=== PATIENT | male | born 1940 | race Caucasian/White ===

== ENCOUNTER → 2018-03-02 14:36 | Outpatient (CLI) | payer MEDICARE, SELFPAY ==
--- NOTE | 2018-03-02 14:38 | DI.MRI.S_ITS ---
PROCEDURE: MR ABDOMEN WO CON INDICATIONS: ELEVATED ALKALINE PHOSPHATASE TECHNIQUE: Coronal HASTE through the abdomen, axial 2-D FLASH in- and [id number], and breath-hold T2 FSE with fat saturation through the biliary system and pancreas. Oblique coronal and axial thin-slice HASTE, radial thick-slab HASTE centered on the extrahepatic bile ducts. Intravenous secretin: Not requested. COMPARISON: None. FINDINGS: Image quality: Excellent. Pancreas and biliary system: Intra- and extra-hepatic biliary ducts are non dilated. Pancreas is normal in morphology, without adjacent soft tissue edema. Pancreatic duct is normal in caliber, without developmental anomalies. Gallbladder appears normal. Other solid organs: Liver is normal in size. Spleen is normal in size. No adrenal nodules. Both kidneys are normal in size, without hydronephrosis. Nodes and vessels: No retroperitoneal or mesenteric adenopathy by size criteria. Aorta and inferior vena cava are normal in size. Bowel and peritoneum: Unenhanced bowel loops are normal in caliber. No free fluid. Lung bases: No basal pleural effusions. Heart size is normal. Bones and soft tissues: No ventral hernias. Bone marrow is of normal overall signal. IMPRESSION: Source of elevated liver function tests is not found. No underlying biliary distention or gallbladder calculus is found. Liver parenchyma appears normal for age. Dictated by: Cholo Pablo M.D. on 03/04/2018 at 10:04 Approved by: Cholo Pablo M.D. on 03/04/2018 at 10:05
== END ==
PROVIDERS: Family Provider Family Medicine; PCP Family Medicine; Visit Provider Family Medicine
DX: R74.8 Abnormal levels of other serum enzymes (principal)
CPT/HCPCS: 74181

== ENCOUNTER → 2018-09-04 09:18 | Outpatient (CLI) | payer MEDICARE, SELFPAY ==
--- NOTE | 2018-09-04 | DI.ECHO.S_ITS ---
[place] [facility]---------+ [facility] +---------+ : : [address] : : : : [id number] : : : : Phone: [phone] Echocardiogram Report + + :Name: MARION LLANOS Study Date: 09/04/2018 Height: 70 in : :[facility] Exam Location: IS Weight: 193 lb : : Gender: Male BSA: 2.1 m2 : :: 1940 Age: 77 yrs BP: 125/60 mmHg: :Reason For Study: Atrial fibrillation : :Ordering Physician: Florencio : :Erwin Garrido Performed By: Palma Page : :Referring: SHIRA DASH : + + Interpretation Summary The patient was in atrial fibrillation with heart rates between 90-111 bpm during the exam. The left ventricle is normal in size. Left ventricular systolic function is low normal. The ejection fraction is estimated to be 50-55%. There has been no significant change since the previous study. There are no focal wall motion abnormalities. The right ventricle is normal in size and function. The right ventricular systolic pressure is estimated to be at least 27 mmHg based on an estimated right atrial pressure of 8 mm Hg. Both atria are severely dilated. The aortic valve is mildly calcified. There is no hemodynamically significant valvular aortic stenosis. The peak aortic velocity is 2.1 m/sec. The peak aortic velocity on the previous exam was 2.3 m/sec. There is mild aortic regurgitation. Compared to the prior echo study, there has been a decrease in the severity of aortic regurgitation. There is no other significant valvular heart disease. The aortic root is mildly dilated. The ascending aorta is mildly enlarged. Procedure: A two-dimensional transthoracic echocardiogram with color flow and Doppler was performed. The study quality was technically adequate. Comparison is made with the echocardiogram of 08/23/2016. The patient was in atrial fibrillation with heart rates between 90-111 bpm during the exam. Left Ventricle: The left ventricle is normal in size. Left ventricular wall thickness is mildly increased. Left ventricular systolic function is low normal. The ejection fraction is estimated to be 50-55%. There has been no significant change since the previous study. There are no focal wall motion abnormalities. Diastolic function could not be accurately assessed due to atrial fibrillation. Right Ventricle: The right ventricle is normal in size and function. Atria: Both atria are severely dilated. There is no Doppler evidence for an interatrial shunt. Mitral Valve: The mitral valve leaflets appear mildly thickened, but open well. There is mild mitral annular calcification. There is trace mitral regurgitation. Aortic Valve: The aortic valve is mildly calcified. There is no hemodynamically significant valvular aortic stenosis. The peak aortic velocity is 2.1 m/sec. The peak aortic velocity on the previous exam was 2.3 m/sec. The calculated aortic valve area is 2.0 cm2. The aortic valve mean gradient is 10.1 mmHg. There is mild aortic regurgitation. Compared to the prior echo study, there has been a decrease in the severity of aortic regurgitation. Tricuspid Valve: The tricuspid valve is normal in structure and function. There is trace tricuspid regurgitation. The right ventricular systolic pressure is estimated to be at least 27 mmHg based on an estimated right atrial pressure of 8 mm Hg. Pulmonic Valve: The pulmonic valve is not well visualized. There is no pulmonic valvular regurgitation. There is no other significant valvular heart disease. Great Vessels: The aortic root is mildly dilated. The ascending aorta is mildly enlarged. The pulmonary artery is not well visualized, but is probably normal size. The IVC is dilated (diameter is greater than 2.1 cm) yet it collapses greater than 50% with a sniff. This suggests a right atrial pressure of 8 mm Hg. Pericardium/ Pleura There is no pericardial effusion. There is no pleural effusion. MMode/2D Measurements & Calculations LVIDd: 5.1 cm LVOT diam: 2.3 cm LVIDs: 4.1 cm Ao root diam: 4.1 cm FS: 19.8 % asc Aorta Diam: 3.9 cm EPSS: 0.48 cm IVSd: 1.2 cm LVPWd: 1.2 cm LV le. diameter/BSA (cm/m^2): 2.5 LV sys. diameter/BSA (cm/m^2): 2.0 LA A2 area: 32.2 cm2 RA long axis: 7.5 cm LA A4 area: 28.3 cm2 RA area: 31.9 cm2 LA length (vol): 7.6 cm RA vol: 115.4 ml LA vol: 101.8 ml RA : 56.1 ml/m2 LA vol index: 49.5 ml/m2 IVC diam: 2.7 cm RVD1 (basal): 3.4 cm RVD2 (mid): 2.4 cm Doppler Measurements & Calculations Ao V2 max: 214.3 cm/sec LVOT Max Brent: 103.1 cm/sec Ao V2 mean: 150.1 cm/sec LV V1 max P.3 mmHg Ao max P.4 mmHg LV V1 VTI: 21.1 cm Ao mean P.1 mmHg FRANK(I,D): 2.2 cm2 Ao V2 VTI: 39.7 cm FRANK(V,D): 2.0 cm2 sev ratio: 0.53 FRANK indexed to BSA (cm^2/m^2): 1.1 MV E max brent: 119.0 cm/sec TR max brent: 217.0 cm/sec Med Peak E' Brent: 8.4 cm/sec TR max P.9 mmHg E/E' med: 14.2 PA V2 max: 80.2 cm/sec Lat Peak E' Brent: 5.9 cm/sec PA V2 mean: 57.0 cm/sec E/E' lat: 20.2 PA mean P.4 mmHg E/e' average: 17.2 PA Accel Time: 0.07 sec MV P1/2t: 57.1 msec MVA(VTI): 3.0 cm2 MV V2 mean: 68.7 cm/sec MV P1/2t max brent: 117.5 cm/sec MV mean P.4 mmHg MVA(P1/2t): 3.8 cm2 MV V2 VTI: 29.8 cm SV(LVOT): 89.1 ml Reading Physician:12:31 PM
== END ==
PROVIDERS: PCP Family Medicine; Visit Provider Internal Medicine Cardiovascular Disease
DX: I48.2 Chronic atrial fibrillation (principal); I35.1 Nonrheumatic aortic (valve) insufficiency; I77.89 Other specified disorders of arteries and arterioles
CPT/HCPCS: 93306

== ENCOUNTER → 2018-10-31 11:35 | Outpatient (CLI) | payer MEDICARE, SELFPAY ==
--- NOTE | 2018-10-31 | DI.RAD.S_ITS ---
PROCEDURE: XR HIP W PEL IF DONE LT 2V INDICATIONS: left hip pain TECHNIQUE: AP pelvis with lateral view(s) of the left hip(s). COMPARISON: None. FINDINGS: Bones: No fractures or dislocations. Pelvic ring appears intact. No suspicious bony lesions. There are severe osteoarthritic changes in hips bilaterally with joint space narrowing subchondral sclerosis and periarticular osteophytes, left greater than right. Soft tissues: The visualized bowel gas pattern is normal. No suspicious soft tissue calcifications. 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 Dictated by: Dhruv Mayer M.D. on 10/31/2018 at 17:36 Approved by: Dhruv Mayer M.D. on 10/31/2018 at 17:38
== END ==
PROVIDERS: PCP Family Medicine; Visit Provider Family Medicine
DX: M25.552 Pain in left hip (principal); M16.0 Bilateral primary osteoarthritis of hip
CPT/HCPCS: 73502

== ENCOUNTER → 2018-12-05 09:33 | Outpatient (CLI) | payer MEDICARE, SELFPAY | PROVIDERS: PCP Family Medicine; Visit Provider Family Medicine | DX: R20.0 Anesthesia of skin (principal) | CPT/HCPCS: 95885; 95886; 95911 ==

== ENCOUNTER → 2019-01-09 14:42 | Outpatient (CLI) | payer MEDICARE, SELFPAY ==
[2019-01-09 15:15] LABS: Add Manual Diff / Slide Review NO; Basophils Absolute Auto 100 /uL (0-100); Basophils Percent Auto 0.8 % (0-2); Eosinophils Absolute Auto 200 /uL (0-450); Eosinophils Percent Auto 1.9 % (2-4); Hematocrit 39.4 % (41-53); Hemoglobin 13.3 g/dL (13.5-17.5); Lymphocytes Absolute Auto 1300 /uL (1100-4500); Lymphocytes Percent Auto 16.3 % (25-40); Mean Corpuscular HGB Conc 33.6 % (30-36); Mean Corpuscular Hemoglobin 31.8 PG (26-34); Mean Corpuscular Volume 94.5 fL (80-100); Monocytes Absolute Auto 600 /uL (0-900); Monocytes Percent Auto 7.4 % (3-14); Neutrophils Absolute Auto 5900 /uL (1500-7000); Neutrophils Percent Auto 73.6 % (50-75); Platelet Count 251 X10^3/uL (150-400); Red Blood Cell Count 4.17 X10^6/uL (4.5-5.9); Red Cell Distribution Width 14.9 % (11.6-14.8)
[2019-01-09 16:00] LABS: Carbon Dioxide 28 mmol/L (22-32); Chloride 99 mmol/L (98-107); HEMOLYSIS < 15 (0-50); Potassium 4.2 mmol/L (3.4-5.1); Sodium 138 mmol/L (137-145)
== END ==
PROVIDERS: PCP Family Medicine; Visit Provider Orthopaedic Surgery
DX: M16.10 Unilateral primary osteoarthritis, unspecified hip (principal); Z01.818 Encounter for other preprocedural examination; Z01.812 Encounter for preprocedural laboratory examination
CPT/HCPCS: 36415; 80051; 85025; 93005

== ENCOUNTER 2019-02-10 06:09 | Inpatient (IN) | payer MEDICARE, SELFPAY ==
[2019-01-27 08:53] VITALS: BMI 28.3
[2019-02-10] VITALS (18 sets, daily range): BP systolic 85–179; BP diastolic 39–91; PULSE 68–98; RESP 10–20; TEMP 36.2–37.2; O2SAT 93–97; BMI 29.0
--- NOTE | 2019-02-10 06:00 | DI.RAD.S_ITS ---
PROCEDURE: XR PELVIS 1-2V INDICATIONS: ADAM TECHNIQUE: 1 view of the lower pelvis acquired. COMPARISON: None. FINDINGS: Bones: Patient is status post left total hip arthroplasty, with hardware components in expected positions. The hip joint appears congruent. The visualized bony structures appear intact. Degenerative changes of the right hip are present. Soft tissues: Overlying postoperative changes are noted. No suspicious soft tissue densities. IMPRESSION: Expected postoperative changes of left total hip arthroplasty. No acute hardware complication. Dictated by: Rush Ford M.D. on 02/10/2019 at 10:11 Approved by: Rush Ford M.D. on 02/10/2019 at 10:12
[2019-02-10] MEDS: LACTATED RINGERS 1,000 ML 42 ML IV ×2 (07:05→08:47)
[2019-02-10] MEDS: PREGABALIN 75 MG CAPSULE PO (07:08)
[2019-02-10] MEDS: ACETAMINOPHEN 325 MG TABLET 975 MG PO ×3 (07:09→21:01)
--- NOTE | 2019-02-10 07:15 | SUR.PREOP ---
Pt refused celebrex due to hx of taking eliquis.
--- NOTE | 2019-02-10 07:49 | PM.PREOP ---
Pre-operative Note Interval Note History & Physical reviewed/Exam performed by Physician: Yes Changes to H&P: No
[2019-02-10] MEDS: CEFAZOLIN 2 GM/100 ML FROZ.PIGGY IV ×3 (07:50→23:57)
[2019-02-10] MEDS: TRANEXAMIC ACID 1,000 MG VIAL 2000 MG INJ ×2 (08:10→09:09)
--- NOTE | 2019-02-10 08:24 | SUR.OPER ---
Lateral on padded OR bed. Gel axillary roll. Arms secured on padded armboard with pillow supporting top arm. Padded hip positioner braces x4 - anterior and posterior chest and pelvis. Additional gel pad used anterior pelvis. Gel pad under bottom leg from knee to foot and secured with tape over sheet.
[2019-02-10] MEDS: ROPIVACAINE 0.5% PF 5 MG/ML 20ML VIAL 60 ML INJ (08:31)
[2019-02-10] MEDS: KETOROLAC 30 MG/ML VIAL IV (08:31)
[2019-02-10] MEDS: MORPHINE 4 MG/ML INJ INJ (08:31)
--- NOTE | 2019-02-10 09:46 | PM.OP.1 ---
Operative Date/Time/Diagnoses Date of procedure: 02/10/19 Time of procedure: 09:46 Pre-op diagnosis: Left hip degenerative joint disease Post-op diagnosis: same Procedure & Clinicians Procedure: Left total hip arthroplasty (CPT code 55236 with payroll and benefits assistant) Same procedure as scheduled: Yes Indications: Patient is an 78-year-old male with severe left hip DJD. The patient has pain with activities and at rest, limited ambulation and activity tolerance, difficulties with ADLs, and failure of conservative treatment. We have discussed the nature of condition, treatment options, risks and benefits, and patient elects to proceed with total hip arthroplasty and gives informed consent. Surgeon: Jaxon Johnson Breading Machine Tender: Fox Chowdary Anesthesia Type: General and Spinal Operative Notes Closure Type: primary Specimen(s): none sent Prosthetic devices, grafts, tissues, transplants, or devices: Acetabulum: Mott [employer] Nephew R3 acetabular component size 56 mm Femoral component: Mott [employer] Nephew Anthology stem size 7 with standard offset Femoral head: 36 mm + 8 cobalt chrome Estimated Blood Loss (mL): 100 Blood products transfused: none Procedure in detail: After satisfaction induction of anesthetic, and administration of IV antibiotics, the patient was positioned in the lateral decubitus position with all bony prominences well padded and pelvic position secured using a hip ranch helper positioning device. Left hip and lower extremity prepped and draped in the usual sterile fashion, 1st dose of intravenous tranexamic acid was administered, then a longitudinal incision was created centered over the greater trochanter and carried sharply through the skin and subcutaneous tissues down to the fascia jaycob which was divided longitudinally and retracted with a Charnley retractor. External rotators visualize, cut, tagged, and retracted posteriorly, then the capsule was cut in a T-type fashion with the corners tagged and retracted. Hip was dislocated and femoral neck cut made according to preoperative templating. Acetabular retractors then placed, and the acetabular labrum and osteophytes were excised. The acetabulum was then sequentially reamed to 55 mm with an excellent circumferential ream and fit with the trial. The trial component was removed and a permanent size 56 mm Mott and Nephew R3 acetabular component was selected, positioned, and impacted with satisfactory position and fixation achieved. Permanent liner was then inserted with the elevated lip directed posteriorly. Soft tissue then removed off the lateral femoral neck in the lateral neck was entered using a box osteotome. T-handled reamers placed down the canal followed by sequential broaching to 7 with the final broach left in place for trial reduction which demonstrated excellent leg length, range of motion, and stability characteristics with a 36 mm +8 trial ball. The trial and broach were removed, and a permanent size 7 Mott and Nephew Anthology stem was selected and inserted with excellent position and fixation achieved. Another trial reduction yielded the above characteristics so the trial ball was exchanged for a permanent 36 mm +8 cobalt chrome ball. The hip was irrigated and reduced and excellent leg length range of motion and stability characteristics were achieved and maintained. Periarticular tissues were infiltrated with ropivacaine, morphine, and Toradol. The hip was copiously irrigated, and the capsule repaired with #2 Ethibond, and the piriformis was repaired back to the greater trochanter with the same. Fascia jaycob closed with interrupted #1 Ethibond sutures, and the subcutaneous tissues were closed in 2 layers of 0 Vicryl and 2 0 Vicryl. Skin was closed with erika and sterile dressings applied. Second dose of tranexamic acid was administered intravenously, and the anesthetic was terminated. Complications: none Post-operative Condition: stable Disposition: PACU Plan for aftercare: Patient will be admitted to the acute care [facility], and anticipate discharge on postop day 1 with follow-up in office in 10-14 days. Outpatient physical therapy will be arranged and patient will continue to observe posterior hip precautions. Patient will continue use of Eliquis postoperatively.
--- NOTE | 2019-02-10 09:46 | SUR.PREOP ---
Late enrty: INR discussed with Dr. Johnson, instructed that it is not needed.
[2019-02-10] MEDS: LACTATED RINGERS 1,000 ML 125 ML IV (15:59)
--- NOTE | 2019-02-10 17:39 | PC.NURSE ---
Addendum entered by Rosalva Green R.N. 02/10/19 22:38: Patient denies any more emesis or nausea tonight. 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 Wearing bilateral SCD's. Voided 4 ml, post-void bladder scan = 398 ml. He asked to have more time in order to void, will reassess. Drinking lots of H2o, diet advanced to regular. Original Note: Evening notee: Kaden resting in bed. PT in to work with him but said he was not safe to ambulate & lacking motor control of leg. PT told me it would be good to get patient up to side of bed later tonight and have him attempt marching in place, but not to try to ambulate patient tonight. PT said they would be back in AM to reassess. Patient denied nausea but had bout of sudden emesis. After he threw up told me he was not nauseated and did not want anti-emetic at this time. After 1 hour of rest patient given clear liquids and told to go slow on PO intake. Has not voided since admitted, told me he said he thought he felt urge but it went away. Bladder scan = 255 ml. Instructed him to drink water as tolerated. Denies pain to left leg, CMS intact, moving feet actively. SCD's on bilaterally. VS are stable. RA oxygen 96-100% with continuous pulse ox monitoring in place. Fall precautions in place, alarm active for safety. Dr Johnson in to see patient. Family & friends in room to visit.
[2019-02-10] MEDS: LOSARTAN 50 MG TABLET 100 MG PO (19:01)
[2019-02-10] MEDS: APIXABAN 5 MG TABLET PO (21:01)
[2019-02-10] MEDS: METOPROLOL ER 50 MG TABLET 75 MG PO (21:01)
[2019-02-10] MEDS: ASPIRIN EC 81 MG TABLET PO (21:01)
[2019-02-10] MEDS: ATORVASTATIN 20 MG TABLET 40 MG PO (21:01)
--- NOTE | 2019-02-10 22:45 | PC.NURSE ---
1725 - RN requested bladder scan. Pt had 255ml. 2100- Second bladder scan performed at RN request and pt had 398cc. However, just prior to this scan the pt tried for almost 20 mins to urinate with only minimal success of 4cc out.
--- NOTE | 2019-02-10 23:43 | PC.NURSE ---
Addendum entered by Blake Myers CNA 02/10/19 23:44: Notified float FLORES Dacosta after scan complete. Original Note: 2300- Bladder scan at RN request. Scanned 395ml.
[2019-02-11] MEDS: LACTATED RINGERS 1,000 ML 125 ML IV (01:29)
[2019-02-11 04:00] VITALS: BP 129/64; PULSE 96; RESP 18; TEMP 36.4; O2SAT 93
[2019-02-11 06:25] LABS: Hematocrit 34.7 % (41-53); Hemoglobin 11.3 g/dL (13.5-17.5)
--- NOTE | 2019-02-11 07:43 | PM.PNPO.1 ---
Subjective Subjective Date Patient Seen: 02/11/19 Time Patient Seen: 07:30 Interval history: Post op day 1 s/p posterior approach left total hip arthroplasty with Dr. Johnson. Overnight patient had a bladder scan of 395ml and was straight cathed for 300 ml. This AM patient voided 100 ml unassisted. Denies history of BPH. Patient is doing minimal ambulation and hasn't seen PT. He denies pain and feels stable when standing up. PT advised to begin ambulating more, will see PT today. Patient states he has no pain and only taking tylenol. Patient advised that pain will return and to take oxycodin, dilaudid as needed. Patient denies fever, chills, chest pain, shortness of breath, calf pain. Exam Vital Signs (past 8 hours): - 02/10/19 23:55 02/11/19 04:00 Temperature 97.6 F 97.6 F Pulse Rate 84 96 H Respiratory Rate 18 18 Blood Pressure 140/65 129/64 Pulse Oximetry 94 93 Oxygen Delivery Method Room Air Oxygen Flow Rate 0 Narrative Exam Narrative: 78 year old man laying comfortably in bed, in no apparent distress. A&Ox3. Dressing is CDI on left hip. Patient able to actively dorsiflex/plantar flex. Sensory function grossly intact to light touch in LE b/l. Dorsalis pedis 2+ b/l. Capillary refill <2 seconds in LE b/l. Calves warm, soft, compressible and nttp. Objective Labs Result Diagrams: 02/11/19 05:49 Labs: Laboratory Results - last 24 hr 02/11/19 05:49 Hgb 11.3 L Hct 34.7 L Assessment & Plan Post-op Postoperative Procedures: Procedures Operation Date: 02/10/19 07:45 Actual Procedures Side Surgeon p Total Hip Arthroplasty Left Jaxon Johnson MD Postoperative status: urinary retention Postoperative plan narrative: Urinary retention - flomax, continue to monitor, if bladder scan >400 ml then straight cath Ambulation - begin physical therapy today Pain - continue current pain management, anticipate use of oxycodone and dilaudid today Discharge likely tomorrow pending urinary retention and ambulation with physical therapy Time Spent With Patient Time with patient: less than 15 minutes
[2019-02-11 08:00] VITALS: BP 116/76; PULSE 74; RESP 16; TEMP 36.8; O2SAT 96
[2019-02-11 08:30] VITALS: O2SAT 94
--- NOTE | 2019-02-11 09:27 | PT.IPTN ---
Current Diagnoses Unilateral primary osteoarthritis, left hip (02/10/19) Surgery Performed Operation Date: 02/10/19 07:45 Actual Procedures p Total Hip Arthroplasty(Left) - Jaxon Johnson MD Physical Therapy Treatment Note M2 PT-IP Current Condition Start: 02/10/19 11:44 Freq: NEEDED Status: Active Protocol: Document 02/10/19 15:08 RS (Rec: 02/10/19 15:45 RS [id number]) Physical Therapy Current Condition Current Condition Evaluation Date 02/10/19 Treatment Diagnosis L posterior hip replacement, impaired mobility Onset Date 02/10/19 Precautions Posterior Hip Precautions No Hip Flexion > 90 degrees,No Hip Internal Rotation,No Hip Adduction Weight Bearing Status Weight Bearing Status Weight Bear as Tolerated M3 PT-IP Subjective Start: 02/10/19 11:44 Freq: NEEDED Status: Active Protocol: Document 02/11/19 08:36 CLB (Rec: 02/11/19 10:05 CLB [email or web address]) Subjective Physical Therapy Visit Type Type Treatment Note Visit Start Time 08:36 Visit Stop Time 09:27 Total Visit Minutes 51 Number of CATTLE EXAMINER Visits 1 Physical Therapy Visit Comments Patient Comments Pt eager to work with therapy. Therapy Pain Assessment Pain When Pain Assessed During Mobility Pain Present Pain Present Pain Reported Location Left Hip Intensity 1 Scale Used Numeric (1 - 10) Pain Management Techniques Modification of Treatment, Timing of Activity with Medications M4 PT-IP Mobility and Gait Start: 02/10/19 11:44 Freq: NEEDED Status: Active Protocol: Document 02/11/19 08:36 CLB (Rec: 02/11/19 10:05 CLB [email or web address]) PT-Bed Mobility Assessment Supine to Sit Supine to Sit Standby Assistance,Head of Bed Elevated,Bedrails Sit to Supine Sit to Supine Standby Assistance Scooting Scooting to Edge of Bed Standby Assistance PT-Transfer Assessment Sit to and From Stand Sit to and from Stand Contact Guard Assistance,1 Person Assistance,Use of Upper Extremities Equipment Transfer Assistive Device Gait Belt,Front Wheeled Walker Transfers Transfer Destination Bed,Chair,Toilet Comments Mobility Comments Pt doing well with bed mobility requiring SBA. Pt was able to get LLE off bed w/o assist. Pt able to go from sit -stand with cues to put LLE out in front before standing and cues for hand position. Pt required CGA to sit onto toilet and use of wall rail. Gait Assessment Gait Gait Assistance Required: Standby Assistance,Contact Guard Assist Distance (Feet) 200 Able to Maintain Weight Bearing Status Yes During Gait Assistive Devices Assistive Device Gait Belt,Front Wheeled Walker Gait Deviations General Gait Pattern Antalgic,Decreased Stride Length,Decreased Feet Clearance,Flexed Trunk,Step-to Gait Factors Limiting Gait Function Factors Limiting Gait Function Decreased Activity Tolerance, Decreased Strength,Limited Range of Motion,Pain Comments Gait Comments Pt required cues for posture and proper sequencing with walker. Pt able to then use proper step walker sequencing with continued cues for posture and forward gaze as pt tends to watch his feet while walking. Stair Climbing Assessment Evaluation Level of Assist On Stairs Contact Guard Assistance,1 Person Assistance Devices Stair Climbing Assistive Devices Right Railing Technique/Endurance Stair Climbing Direction Ascend and Descend Stair Climbing Technique Step to Step Number of Steps Climbed 3 Stair Climbing Set # Repetitions (reps) 3 Comments Stair Climbing Comments Pt able to climb stairs with right rail and MATH PROFESSOR on left side, pt/CATTLE EXAMINER demonstrated on first set then was able to assist pt with two sets. Pt climbed stairs with minor increase in pain. M5 PT-IP Objective Assessments Start: 02/10/19 11:44 Freq: NEEDED Status: Active Protocol: Document 02/10/19 15:08 RS (Rec: 02/10/19 15:45 RS [id number]) Orientation Orientation/Cognition Level of Alertness Alert Orientation Name,Age,Birthday,Month,Date, Year,Day of Week,Place, Situation Language Function Ability No Deficits Noted Safety Awareness Understands Safety Issues Memory Description No Deficits Noted Gross Range of Motion Upper Extremity ROM Assessment Within Functional Limits Lower Extremity ROM Assessment Within Functional Limits Impairments with LLE posterior hip precautions Strength Upper Extremity Strength Assessment Within Functional Limits Lower Extremity Strength Assessment Left Impaired Comments Strength Comments not formally assessed. pt able to perform all ADAM exercises without assist except for quad set, having trouble isolating activation of quads and was trying to substitute with hamstrings. L quads currently 2-/5 at best Sensation Assessment Comments Sensation Comments initial LT testing was symmetrical and intact per pt from foot up to thigh, but at end of session pt reports that his LLE does feel more numb than the RLE M6 PT-IP Treatment Start: 02/10/19 11:44 Freq: NEEDED Status: Active Protocol: Document 02/11/19 08:36 CLB (Rec: 02/11/19 10:05 CLB [email or web address]) Physical Therapy Treatment Exercises Exercises Ankle Pumps,Gluteal Sets,Quad Sets,Heel Slides,Supine Hip Abduction Education Education Provided Precautions,Weight Bearing Status,Post-Op Packet,Safety M7 PT-IP Assessment and Plan Start: 02/10/19 11:44 Freq: NEEDED Status: Active Protocol: Document 02/11/19 08:36 CLB (Rec: 02/11/19 10:05 CLB [email or web address]) PT Summary Assessment and Plan Potential Rehabilitation Potential Good Status of Condition at Evaluation Evolving Summary Impairments Strength,Balance,Sensation, Transfers,Gait Assessment Summary Pt improved with all bed mobility, transfers and gait. Pt able to climb stairs with wifes assist. Pt with good activation of L quad today and is able to stand, walk and perform quad sets. Pt seems safe to d/c home with 's assistance when medically stable. Goals Bed Mobility Goal Independent Transfer Goal Contact Guard Assistance Gait Goal Contact Guard Assistance Gait Distance 50 Other Goals up/down 2 steps with CGA Days to Meet Goals 3 Frequency of Treatment Frequency Of Treatment Twice a Day Treatment Plan Physical Therapy Treatment Plan Bed Mobility Training,Transfer Training,Gait Training, Therapeutic Exercise,Balance Retraining,Post Op Education, Discharge Planning,Hot or Cold Pack,Neuromuscular Re-ed, Coordination Retraining,Manual Therapy Recommendations To Nursing Amount of Assist Needed 1 Person Assist Discharge Recommendations PT Discharge Recommendations Home with 13/11 Assist, Outpatient PT
[2019-02-11] MEDS: FUROSEMIDE 40 MG TABLET PO (09:44)
[2019-02-11] MEDS: ACETAMINOPHEN 325 MG TABLET 975 MG PO (09:44)
[2019-02-11] MEDS: ASPIRIN EC 81 MG TABLET PO (09:44)
[2019-02-11] MEDS: APIXABAN 5 MG TABLET PO (09:44)
[2019-02-11] MEDS: LEVOTHYROXINE 100 MCG TABLET 200 MCG PO (09:45)
[2019-02-11] MEDS: METOPROLOL ER 50 MG TABLET 75 MG PO (09:45)
[2019-02-11] MEDS: TAMSULOSIN 0.4 MG CAPSULE PO (09:45)
[2019-02-11] MEDS: POTASSIUM CHLORIDE 20 MEQ TAB PO (09:45)
--- NOTE | 2019-02-11 10:58 | CM.DANOTE ---
DCP/Assessment: Reviewed chart. Patient is a 78yr old male admitted to [facility] for left ADAM performed on 02-10-19. PCP is Dr. Chung. Primary payor is 1)Medicare 2)[employer]. Met with patient explained CM team role. Patient's spouse/Kylie at bedside. Patient reports that he hopes to d/c home today. Patient has all needed DME and outpatient therapy is scheduled in [place]. Per patient, he has been seen by therapy and cleared to d/c home. Spoke with RN/ whom reports that she has call out to Ortho team for potential d/c order for today. P: Home when stable. NASEEM Watts Discharge Planning/Care Management CM Discharge Assessment Start: 02/11/19 10:56 Freq: Status: Active Protocol: Document 02/11/19 10:57 KJS (Rec: 02/11/19 10:58 KJS [id number]) Discharge Planning Assessment Assigned Orthopedic Shoe Maker NASEEM Watts Advance Directives? Yes Advance Directives on File No History Provided By Patient,Medical Record Prior Living Arrangements House Household Members spouse Type of transporation used prior to Drives own vehicle admit Independent with ADL's Yes Is patient alert and oriented? Yes Caregiver for Another No DME Already Rented / Owned FWW / Walker Patient/Family Preference OP PT Therapy Barriers to Discharge No Discharge Plan Home Transportation Arrangement Spouse to provide transport. Whiteboard Updated in Patient Room with Yes name and ext. # of Orthopedic Shoe Maker Review Status In Process Next Review Type Continued Stay Review Pre-Anesthesia Assessment Start: 01/27/19 08:53 Freq: Status: Complete Protocol: Document 01/27/19 08:53 CAB (Rec: 01/27/19 09:57 CAB [id number]) Pre-Anesthesia Assessment Patient Also Known As (MATT) Denton Patient Information Reviewed Via Phone Assessment Assessment Completed With Patient H&P Completed Within 30 Days Yes Diagnostic Results BMP/CMP,CBC,EKG Comment Labs/EKG at 01/09/19 Primary Care Provider Kaden Chung Seen Specialist in Last 12 Months Yes Specialist Seen Grocery Specialist,Oral surgeon, Orthopedist Primary Language Armenian Devops Engineer Required No Height 176.53 cm Weight 88.451 kg Body Mass Index (BMI) 28.3 Hearing Ability Normal Visual Assist Magnifying Glass Dentition Type Teeth, Natural Present,Dental Implants Barriers to Learning None Other Aids No Hx Anesthesia Reactions No Hx Family Anesthesia Reaction No Hx Malignant Hyperthermia No Hx Blood Transfusions No Anesthesia Review Requested No alcohol intake current alcohol intake frequency 0-2 drinks per day Smoking Status Former smoker Tobacco type cigarettes how long ago did patient quit smoking Quit 1980 Substance Use Type does not use Pain Present Pain Reported Musculoskeletal Symptoms Abnormal Gait,Back Pain, Difficulty Walking,Joint Pain, Joint Swelling,Neck Pain History of Falling (Recent or History of Yes ) Patient is completely paralyzed or No completely immobile Prosthesis or Orthotic Device Cane,Front Wheel Walker Mental Status Oriented to own ability Is patient on oxygen? No Does patient have CAMILO/SOB No Hx Sleep Apnea No Currently Taking a Beta [place] Yes: Metoprolol Can You Climb a Flight of Stairs Without Yes SOB Hx Chest Pain No Hx SOB No Hx Syncope or Dizziness No Anti-Coagulant Therapy Yes: Lorrie-Advised per Cardiology to hold 3 days prior Has a Grocery Specialist Yes: Dr. Hood-last visit 09/25/18 Cardiac Testing Yes: Echo @ 09/04/18 EF 50- 55% both atria severly dilated Hx Pacemaker/ICD No Pacemaker Rep Required? No Cardiac Clearance Received Yes Comment Cardiac records scanned to record Diet Type At Home Regular dysphagia No Bladder Pattern Nocturia Urinary Catheter Present No Hx Urinary Self Catheterization No Diabetes No Hx Drug Resistant Organism No Presence of External or Internal Medical Yes: Bilateral eye lens Devices Have you traveled outside the [facility] [place] in the last 30 days? Marital Status Lives With spouse Prior Living Arrangements House Number of Floors (Floors) One Floor Support System Spouse Patient Discharge Plan Description Return Home Comment Pt advised 1-3 day length of stay per surgeon Feels Safe in Current Environment Yes Been Physically Hurt or Threatened By a No Person in Current Environment Do you have thoughts of harming yourself None or others? Are you currently considering suicide? No Do you have a plan to hurt yourself or No Plan others? Do You Have Any Spiritual Beliefs That No May Affect Your HC Choices? Do You Have Any Cultural Practices That No May Affect Your HC Choices? Spiritual Referral None Who Can We Speak to About Patient's Care Family, friends Identifying Code for Release of Patient Declines to issue Information Health Care Proxy/Next of Kin Kylie () Health Care Proxy Emergency Contact Name Kylie () Emergency Contact Advance Directives? Yes Advance Directives on File No Requested Patient Bring Advanced Yes Directives DOS Power of Cell Inspector Yes Power of Cell Inspector Name Kylie () Power of Cell Inspector PAC Instructions Durable medical equipment, Medications to take/avoid, Nasal antibiotic,No ETOH/ petroleum product on skin DOS, NPO,Post-op transportation,Pre -surgical wash,Sturdy shoes/ comfortable clothes,Do not bring valuables and remove jewelry
--- NOTE | 2019-02-11 11:14 | PM.DS.1 ---
History of Present Illness History of Present Illness Date Patient Seen: 02/11/19 Time Patient Seen: 11:14 Chief complaint: [id number] Narrative: Patient's pain is 1 to 2/10. Denies fever chills. No nausea vomiting. Patient able to urinate well on his own. Patient's is home to assist him. He did have physical therapy this morning. 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 The patient has pain with activities and at rest, limited ambulation and activity tolerance, difficulties with ADLs, and failure of conservative treatment. We have discussed the nature of condition, treatment options, risks and benefits, and patient elects to proceed with total hip arthroplasty and gives informed consent. Surgeon: Jaxon Johnson Auto Travel Counselor: Fox Chowdary Anesthesia Type: General and Spinal Operative Notes Closure Type: primary Specimen(s): none sent Prosthetic devices, grafts, tissues, transplants, or devices: Acetabulum: Mott and Nephew R3 acetabular component size 56 mm Femoral component: Mott and Nephew Anthology stem size 7 with standard offset Femoral head: 36 mm + 8 cobalt chrome Estimated Blood Loss (mL): 100 Blood products transfused: none Patient admitted to the hospital for left hip arthroplasty. Patient consented to the same. Patient taken to the OR yesterday underwent left total hip arthroplasty. Patient back in his room recovering well as in stable condition. Patient had some difficulty urinating on his own this morning. He has been able to urinate on his own since. He has his home to assist him. He did well with physical therapy. Exam Vital Signs (past 8 hours): - 02/11/19 04:00 02/11/19 08:00 02/11/19 08:30 Temperature 97.6 F 98.2 F Pulse Rate 96 H 74 Respiratory Rate 18 16 Blood Pressure 129/64 116/76 Pulse Oximetry 93 96 94 Oxygen Delivery Method Room Air Oxygen Flow Rate 0 Narrative Exam Narrative: 78-year-old male resting comfortably in bedside chair no apparent distress. Left hip dressing is clean, dry and intact. Both legs are warm and dry. Motor functions intact bilateral lower extremities. Sensation grossly intact to light touch bilateral lower extremities. Objective Labs Result Diagrams: 02/11/19 05:49 Labs: Laboratory Results - last 24 hr 02/11/19 05:49 Hgb 11.3 L Hct 34.7 L Discharge Plan Discharge Plan Patient Disposition: Home Discharge Med Rec/Prescriptions Prescriptions: Continued furosemide 40 mg Tablet 40 mg PO QAM RF: 0 atorvastatin 40 mg Tablet 40 mg PO BEDTIME RF: 0 metoprolol succinate 50 mg Tablet Extended Release 24 Hr 75 mg PO BID RF: 0 levothyroxine 200 mcg Tablet 200 mcg PO DAILY RF: 0 losartan 100 mg Tablet 100 mg PO QPM RF: 0 Eliquis 5 mg Tablet 5 mg PO BID RF: 0 potassium chloride 20 mEq Tablet Extended Release 20 meq PO DAILY RF: 0 Follow up/Referrals: Kaden Chung MD [Primary Care Provider] - Jaxon Johnson MD [Physician] - (1 wk) Provider Discharge Instructions Diet: Diet as Tolerated Activity: Weightbearing as tolerated. Posterior hip precautions. Cold/Heat Therapy: Apply ice as needed Skin/Wound/Dressing Care Report to your healthcare provider any signs of infection, such as:: chills, fever, increased pain, unusual drainage and unusual redness Dressing: Keep clean and dry Discharge Data Primary Care Provider: Kaden Chung
--- NOTE | 2019-02-11 13:15 | PC.NURSE ---
Discharge pt states pain is minimal, 05/02. Controlled with tylenol. up with SBA and FWW. d/c instructions provided to pt and . Aware of f/u apt with Dr Johnson. Dressing changed to coversite prior to d/c per PA order. pt aware to contact MD with any additional questions or concerns. left with all belongings. left in w/c with DAMPENER escort to car with .
== END 2019-02-11 12:55 | disposition home or self-care (01) | DRG 470 ==
PROVIDERS: Admitting Provider Orthopaedic Surgery; PCP Family Medicine; Visit Provider Orthopaedic Surgery
PROC: 0SRB0JZ Replacement of Left Hip Joint with Synthetic Substitute, Open Approach (ICD-10-PCS; CPT 27130; principal; 2019-02-10 07:45)
DX: M16.12 Unilateral primary osteoarthritis, left hip (principal); I48.21 Permanent atrial fibrillation; I10 Essential (primary) hypertension; E78.5 Hyperlipidemia, unspecified; Z87.891 Personal history of nicotine dependence; Z79.01 Long term (current) use of anticoagulants; E03.9 Hypothyroidism, unspecified; R33.9 Retention of urine, unspecified
CPT/HCPCS: 36415; 72170; 85014; 85018; 94762; 97110; 97116; 97162; 97530; C1776; J0690; J1100; J1885; J2250; J2270; J2274; J2405; J2704; J3010

== ENCOUNTER → 2019-06-05 14:24 | Outpatient (CLI) | payer MEDICARE, SELFPAY ==
[2019-02-10 13:54] VITALS: BMI 29.0
[2019-06-05 15:42] LABS: Add Manual Diff / Slide Review NO; Basophils Absolute Auto 100 /uL (0-100); Basophils Percent Auto 1.1 % (0-2); Eosinophils Absolute Auto 200 /uL (0-450); Eosinophils Percent Auto 2.5 % (2-4); Hematocrit 40.1 % (41-53); Hemoglobin 13.3 g/dL (13.5-17.5); Lymphocytes Absolute Auto 1200 /uL (1100-4500); Lymphocytes Percent Auto 17.6 % (25-40); Mean Corpuscular HGB Conc 33.2 % (30-36); Mean Corpuscular Hemoglobin 31.7 PG (26-34); Mean Corpuscular Volume 95.4 fL (80-100); Monocytes Absolute Auto 600 /uL (0-900); Neutrophils Absolute Auto 5000 /uL (1500-7000); Neutrophils Percent Auto 69.8 % (50-75); Platelet Count 260 X10^3/uL (150-400); Red Cell Distribution Width 15.2 % (11.6-14.8); White Blood Cell Count 7.1 X10^3/uL (4.5-11.0)
[2019-06-05 16:05] LABS: Carbon Dioxide 25 mmol/L (22-32); Chloride 103 mmol/L (98-107); HEMOLYSIS < 15 (0-50); Potassium 4.3 mmol/L (3.4-5.1); Sodium 138 mmol/L (137-145)
== END ==
PROVIDERS: PCP Family Medicine; Referring Provider Orthopaedic Surgery; Visit Provider Orthopaedic Surgery
DX: Z01.818 Encounter for other preprocedural examination (principal); Z01.812 Encounter for preprocedural laboratory examination
CPT/HCPCS: 36415; 80051; 85025; 93005

== ENCOUNTER 2019-07-03 10:00 | Observation (INO) | payer MEDICARE, SELFPAY ==
[2019-02-10 13:54] VITALS: BMI 29.0
[2019-07-01 10:58] VITALS: BMI 30.4
[2019-07-02] VITALS (20 sets, daily range): BP systolic 96–137; BP diastolic 48–85; PULSE 72–99; RESP 12–20; TEMP 35.9–36.6; O2SAT 94–99; BMI 29.7
--- NOTE | 2019-07-02 06:00 | DI.RAD.S_ITS ---
PROCEDURE: XR PELVIS 1-2V INDICATIONS: post op TECHNIQUE: 1 view of the lower pelvis acquired. COMPARISON: [facility], [place], XR PELVIS 1-2V, 02/10/2019, 9:40. [facility], [place], XR PELVIS WITH LATERAL HIP RIGHT, 06/02/2019, 11:03. FINDINGS: Bones: Patient is status post recent right hip arthroplasty, with hardware components in expected positions. The hip joint appears congruent. The visualized bony structures appear intact. Previous left hip arthroplasty is intact. Soft tissues: Overlying postoperative changes are noted. No suspicious soft tissue densities. IMPRESSION: Status post recent right hip arthroplasty as above. Dictated by: Cris Mancuso M.D. on 07/02/2019 at 9:56 Approved by: Cris Mancuso M.D. on 07/02/2019 at 9:57
[2019-07-02] MEDS: ACETAMINOPHEN 325 MG TABLET 975 MG PO (07:04)
[2019-07-02] MEDS: LACTATED RINGERS 1,000 ML 42 ML IV ×2 (07:14→09:17)
[2019-07-02] MEDS: CEFAZOLIN 2 GM/100 ML FROZ.PIGGY IV ×3 (07:44→19:31)
[2019-07-02] MEDS: ROPIVACAINE 0.5% PF 5 MG/ML 20ML VIAL 60 ML INJ (08:33)
[2019-07-02] MEDS: MORPHINE 4 MG/ML INJ INJ (08:33)
[2019-07-02] MEDS: KETOROLAC 30 MG/ML VIAL IV (08:34)
[2019-07-02] MEDS: TRANEXAMIC ACID 1,000 MG VIAL 2000 MG INJ ×2 (08:34→09:16)
--- NOTE | 2019-07-02 09:33 | PM.PREOP ---
Pre-operative Note Interval Note History & Physical reviewed/Exam performed by Physician: Yes Changes to H&P: No
--- NOTE | 2019-07-02 09:34 | PM.OP.1 ---
Operative Date/Time/Diagnoses Date of procedure: 07/02/19 Time of procedure: 09:34 Pre-op diagnosis: Right hip DJD Post-op diagnosis: same Procedure & Clinicians Procedure: Right total hip arthroplasty (CPT code 72632 with retail store assistant) Same procedure as scheduled: Yes Indications: Patient is an 78-year-old male with severe right hip DJD. The patient has pain with activities and at rest, limited ambulation and activity tolerance, difficulties with ADLs, and failure of conservative treatment. We have discussed the nature of condition, treatment options, risks and benefits, and patient elects to proceed with total hip arthroplasty and gives informed consent. Surgeon: Jaxon Johnson [employer] Supervisor: Fox Chowdary Anesthesia Type: Spinal and Sedation Operative Notes Closure Type: primary Specimen(s): none sent Prosthetic devices, grafts, tissues, transplants, or devices: Acetabulum: Mott and Nephew R3 acetabular component size 58 mm Femoral component: Mott and Nephew Anthology stem size 8 with standard offset Femoral head: 36 mm + 0 cobalt chrome Estimated Blood Loss (mL): 150 Procedure in detail: After satisfaction induction of anesthetic, and administration of IV antibiotics, the patient was positioned in the lateral decubitus position with all bony prominences well padded and pelvic position secured using a hip supervisor fryer farm positioning device. Right hip and lower extremity prepped and draped in the usual sterile fashion, 1st dose of intravenous tranexamic acid was administered, then a longitudinal incision was created centered over the greater trochanter and carried sharply through the skin and subcutaneous tissues down to the fascia jaycob which was divided longitudinally and retracted with a Charnley retractor. External rotators visualize, cut, tagged, and retracted posteriorly, then the capsule was cut in a T-type fashion with the corners tagged and retracted. Hip was dislocated and femoral neck cut made according to preoperative templating. Acetabular retractors then placed, and the acetabular labrum and osteophytes were excised. The acetabulum was then sequentially reamed to 57 mm with an excellent circumferential ream and fit with the trial. The trial component was removed and a permanent size 58 Mott and Nephew R3 acetabular component was selected, positioned, and impacted with satisfactory position and fixation achieved. Permanent liner was then inserted with the elevated lip directed posteriorly. Soft tissue then removed off the lateral femoral neck in the lateral neck was entered using a box osteotome. T-handled reamers placed down the canal followed by sequential broaching to 8 with the final broach left in place for trial reduction which demonstrated excellent leg length, range of motion, and stability characteristics with a 36 mm +0 trial ball. The trial and broach were removed, and a permanent size 8 Mott and Nephew Anthology stem was selected and inserted with excellent position and fixation achieved. Another trial reduction yielded the above characteristics so the trial ball was exchanged for a permanent 36 mm +0 cobalt chrome ball. The hip was irrigated and reduced and excellent leg length range of motion and stability characteristics were achieved and maintained. Periarticular tissues were infiltrated with ropivacaine, morphine, and Toradol. The hip was copiously irrigated, and the capsule repaired with #2 Ethibond, and the piriformis was repaired back to the greater trochanter with the same. Fascia jaycob closed with interrupted #1 Ethibond sutures, and the subcutaneous tissues were closed in 2 layers of 0 Vicryl and 2 0 Vicryl. Skin was closed with erika and sterile dressings applied. Second dose of tranexamic acid was administered intravenously, and the anesthetic was terminated. Complications: none Post-operative Condition: stable Disposition: PACU Plan for aftercare: Patient will be admitted to the acute care [facility], and anticipate discharge on postop day 1 with follow-up in office in 10-14 days. Outpatient physical therapy will be arranged and patient will continue to observe posterior hip precautions. Patient will continue use of postoperative Lovenox for 10 days postop.
--- NOTE | 2019-07-02 09:59 | SUR.PHASEI ---
Patient A/O x 4. Drsg CDI. Denies pain and nausea. Unable to move LE's at this time. Spinal slowly resolving. Patient in A-fib, rate controlled.
[2019-07-02] MEDS: LACTATED RINGERS 1,000 ML 125 ML IV ×2 (11:25→19:36)
[2019-07-02] MEDS: ONDANSETRON 4 MG/2 ML INJ IV (12:18)
--- NOTE | 2019-07-02 12:51 | PC.NURSE ---
Addendum entered by Corinna Chavez R.N. 07/02/19 14:40: pt has no urge to void, bladder scan at 1415 done by SCIENTIFIC RESEARCH MANAGER. Results were for approx 188mls on bladder scan Original Note: Day Shift- Report rec'd from FLORES Dunn in PACU at 1028 on current pt status. Pt arrived to unit room 204 at 1040. Pt's Sharon already present in room. Pt oriented to call light, bed functions. Encouraged ankle pump exercises and deep breathing. Pt has decreased sensation on arrival, able feel normal sensation approx 6 inches below groin area, slight movement to foot area, PPP. upon reassessment at 1205, pt able to bend at knees and slightly flex ankles. No urge to void, denied pain. Right hip bulky dressing CDI, ice pack in place. Pt started to have lunch, felt nauseated and c/o itching to nose. PRN Zofran IV given at 1220, instructed pt to go slow with po food intake. Upon clarifying current medications ordered, pt stated he was told he would only be on Eliquis, post op and not to take Aspirin per his Red Hat Linux Administrator. Physicians note states post op that pt would be on Lovenox. Pt reports having only 2 doses of Lovenox prior to surgery and was not informed to have post op. Called HESHAM Dinh at 1242, to clarify and telephone order rec'd to discontinue scheduled Aspirin, keep Eliquis on schedule. Pt is not ordered to have Lovenox injections post op at this time. No further voiced concerns at this time by pt.
--- NOTE | 2019-07-02 14:25 | PT.IIE ---
Current Diagnoses Unilateral primary osteoarthritis, right hip (07/02/19) Surgery Performed Operation Date: 07/02/19 07:45 Actual Procedures p Total Hip Arthroplasty(Right) - Jaxon Johnson MD Surgical History (Last Updated 01/27/19 @ 09:20 by Niecy Rosales RN) Hx of bilateral cataract extraction (Acute ~2014) Hx of tonsillectomy (Acute) Medical History (Last Updated 01/27/19 @ 12:12 by Niecy Rosales RN) Afib (Acute ~2014) Anemia (Acute) Aortic valve regurgitation (Acute) Arthritis (Acute) Atrial enlargement, bilateral (Acute) Edema (Acute) Foot fracture, right (Acute) HLD (hyperlipidemia) (Acute) HTN (hypertension) (Acute) Hypothyroid (Acute) Left ventricular systolic dysfunction (Acute) Neuropathy (Acute) Osteoarthritis (Acute) Physical Therapy Inpatient Evaluation/Re-Eval M1 PT/OT-IP Prior Functional Status Start: 07/02/19 15:25 Freq: NEEDED Status: Active Protocol: Document 07/02/19 14:25 AB (Rec: 07/02/19 15:42 AB [id number]) Medical Review Prior Functional Status Medical History Reviewed Yes Communication able to make needs known Mobility and Gait pt stated that he is modified independent with all mobilities and ambulation without AD but occasionally uses a SPC depending on hip pain. Social History Household Members spouse Living Arrangements House Number of Floors (Floors) One Floor Number of Stairs To Enter/Railing? 2 platform steps from the front 2 steps with R rail ascending from the garage Home Environment Standard Height Toilet,Walk in Shower Home Equipment Front Wheel Walker,Straight Cane,Raised Toilet Seat w/ Armrests M2 PT-IP Current Condition Start: 07/02/19 15:25 Freq: NEEDED Status: Active Protocol: Document 07/02/19 14:25 AB (Rec: 07/02/19 15:42 AB [id number]) Physical Therapy Current Condition Current Condition Evaluation Date 07/02/19 Treatment Diagnosis s/p R ADAM posterior approach; difficulty in walking Onset Date 07/02/2019 Precautions Posterior Hip Precautions No Hip Flexion > 90 degrees,No Hip Internal Rotation,No Hip Adduction Weight Bearing Status Weight Bearing Status Weight Bear as Tolerated Allowed Weight Bearing Amount (enter % WBAT RLE or #) (%) M3 PT-IP Subjective Start: 07/02/19 15:25 Freq: NEEDED Status: Active Protocol: Document 07/02/19 14:25 AB (Rec: 07/02/19 15:42 AB [id number]) Subjective Physical Therapy Visit Type Type Initial Evaluation Visit Start Time 14:25 Visit Stop Time 15:22 Total Visit Minutes 57 Number of PLANER OPERATOR Visits 0 Physical Therapy Visit Comments Patient Comments pt agreeable to do PT Therapy Pain Assessment Pain Present Pain Present Denied Pain M4 PT-IP Mobility and Gait Start: 07/02/19 15:25 Freq: NEEDED Status: Active Protocol: Document 07/02/19 14:25 AB (Rec: 07/02/19 15:42 AB [id number]) PT-Bed Mobility Assessment Supine to Sit Supine to Sit Minimal Assistance Sit to Supine Sit to Supine Contact Guard Assistance Scooting Scooting to Edge of Bed Contact Guard Assistance PT-Transfer Assessment Sit to and From Stand Sit to and from Stand Minimal Assistance,1 Person Assistance,Use of Upper Extremities Equipment Transfer Assistive Device Gait Belt,Front Wheeled Walker Orthotic/Prosthetic Devices or Brace: No Transfers Transfer Destination Chair Transfer Technique Stand Step Pivot Transfer Ability Level of Assist Minimal Assistance,1 Person Assistance,Use of Upper Extremities Comments Mobility Comments reviewed and educated pt with posterior hip precautions. BP supine: 125/77. completed supine to sit min A and cues for hip precautions. pt was able to sit on EOB SBA. completed sit to stand x 2 attempts requiring mod A with initial sit to stand and cued for techniques and completed with min A on 2nd attempt and max cues. pt was able to stand using FWW for support min A and cues. pt with increas posterior LOB requiring min A and cues to shift weight forward and to use FWW for support. pt c/o slight dizziness. instructed pt to transfer to the chair and completed using FWW min A and cues. checked BP: 115/75 after transfers. checked BP again after restin/77. pt wanted to practice sit <> stand and completed from chair min A and max cues. pt completed 3 reps. completed stand step transfer to bed using FWW min A and cues and completed sit <>stand from bed x 2 reps min A and cues. pt requested to just go back to bed afterwards to rest and completed sit to supine CGA and cues. positioned pt in bed. call light and table placed within reach. informed nurse regarding pt's c/o dizziness and mobility level. Gait Assessment Comments Gait Comments able to take steps during transfers; unable to ambulate due to c/o dizziness PT-Balance Assessment Sitting Balance and Reactions Static Sitting Balance Ability Good Dynamic Sitting Balance Ability Good Standing Balance and Reactions Static Standing Balance Ability Fair Dynamic Standing Balance Ability Fair Device Used FWW M5 PT-IP Objective Assessments Start: 07/02/19 15:25 Freq: NEEDED Status: Active Protocol: Document 07/02/19 14:25 AB (Rec: 07/02/19 15:42 AB [id number]) Orientation Orientation/Cognition Level of Alertness Alert Orientation Name,Place,Situation Safety Awareness Decreased Safety Awareness Memory Description Short Term Impaired Gross Range of Motion Lower Extremity ROM Assessment Within Functional Limits Strength Lower Extremity Strength Assessment Right Impaired Hip 3+/5 Knee 3+/5 Coordination Assessment Gross Coordination Gross Coordination WNL Sensation Assessment Sensation Gross Sensation Right LE Impaired,Left LE Impaired Light Touch Impaired Proprioception (Position) Impaired Sensation Description Numbness Comments Sensation Comments BLE decrease sensation RLE>LLE Muscle Tone Muscle Tone WNL Yes M6 PT-IP Treatment Start: 07/02/19 15:25 Freq: NEEDED Status: Active Protocol: Document 07/02/19 14:25 AB (Rec: 07/02/19 15:42 AB [id number]) Physical Therapy Treatment Exercises Exercises Ankle Pumps Education Education Provided Precautions,Weight Bearing Status,Post-Op Packet,Safety Other Treatments Other Treatment Performed reviewed posterior hip precautions with pt M7 PT-IP Assessment and Plan Start: 07/02/19 15:25 Freq: NEEDED Status: Active Protocol: Document 07/02/19 14:25 AB (Rec: 07/02/19 15:42 AB [id number]) PT Summary Assessment and Plan Potential Rehabilitation Potential Good Status of Condition at Evaluation Evolving Summary Impairments Pain,ROM,Strength,Balance, Coordination,Sensation,Tone, Cognition,Bed Mobility, Transfers,Gait,Activity Tolerance Assessment Summary pt requiring min A with transfers and c/o dizziness during mobility and unable to ambulate but able to complete transfer using FWW. d/c plan depending on progress and will conduct caregiver training when appropriate. pt plans to go home and spouse will assist pt. will complete stair training prior to d/c. pt also stated that he is scheduled for outpt PT. Goals Bed Mobility Goal Standby Assistance Transfer Goal Standby Assistance,Front Wheeled Walker Gait Goal Standby Assistance,Front Wheel Walker Gait Distance 200 Other Goals up/down 2 steps R rail ascending SBA Days to Meet Goals 5 Frequency of Treatment Frequency Of Treatment Twice a Day Treatment Plan Physical Therapy Treatment Plan Bed Mobility Training,Transfer Training,Gait Training, Therapeutic Exercise,Balance Retraining,Post Op Education, Discharge Planning,Hot or Cold Pack,Neuromuscular Re-ed, Coordination Retraining,Manual Therapy Other Recommendations and Next Treatment ambulation, stair climbing, Focus caregiver training Recommendations To Nursing Amount of Assist Needed 1 Person Assist Discharge Recommendations PT Discharge Recommendations Home with Assistance, Outpatient PT Transportation Needs at Discharge Private Vehicle
[2019-07-02] MEDS: ACETAMINOPHEN 325 MG TABLET 650 MG PO ×2 (14:38→21:18)
--- NOTE | 2019-07-02 15:22 | CM.DANOTE ---
DCP Brief Assessment Note Patient is a 78 year old male who was admitted on 07/02/19 for Uni Right Hip Surg. Pt has [employer] and [employer] for insurance and his PCP is Dr. Chung. EMR was reviewed. Per Bria CHENG, pt admitted today for surgery and will not be stable for d/c yet today but pending therapy may d/c tomorrow if stable. Pt plan has been home with spouse. Pt has hx of Left hip surg in Jan 2019 and was able to d/c home with spouse and outpt PT at that time. Per RN, pt had some nausea after eating but nausea subsided and pt had supportive spouse bedside. SW attempted to completed bedside assessment but PT doing initial eval towards determining if pt will have any d/c planning needs. Plan: SW to follow for bedside assessment after initial PT eval happening right now towards determining if pt will be able to safely d/c home with when stable. NASEEM Hurst
[2019-07-02] MEDS: LOSARTAN 50 MG TABLET 100 MG PO (16:23)
[2019-07-02] MEDS: APIXABAN 5 MG TABLET PO (21:18)
[2019-07-02] MEDS: ATORVASTATIN 20 MG TABLET 40 MG PO (21:19)
[2019-07-02] MEDS: METOPROLOL ER 50 MG TABLET 75 MG PO (21:19)
[2019-07-02] MEDS: DOCUSATE 100 MG CAPSULE PO (21:19)
--- NOTE | 2019-07-02 22:27 | PC.NURSE ---
Assumed care of pt at 1500. Pt up with P.T. during bedside hand-off. Drsg c/d/i. CMS+. Denies pain. Unable to void this evening. Bladder scanned at 2130 shows volume of 368. Pt voided 25 ml. Enc po fluid intake and pt will attempt to void again. Calling appropriately for needs.
[2019-07-03] VITALS: BP 125/82; PULSE 98; RESP 16; TEMP 36.8; O2SAT 96
--- NOTE | 2019-07-03 02:27 | PC.NURSE ---
Patient is alert and oriented. Breath sounds CTA with RA sat of 96%. HR irregular with rate in 90's; has hx of afib. Denies nausea. BT present but denies yet passing flatus. Has had problems urinating since surgery with past 2 bladder scans of < 400cc so not yet cathed; just now able to void 100cc via urinal so will continue to monitor. Denies bladder pressure or discomfort. Is able to move self in bed; offers to assist in repositioning on side has been declined. Not OOB this shift but reported to have stood at bedside previous shift with walker and 1 assist. Dressing to right hip is CDI. Denies pain. Does have neuropathy in bilateral feet which is chronic. Denies any change in numbness; other CMS is intact. Wearing bilateral SCD's. Fall risk score is moderate; bed alarm is activated.
[2019-07-03 04:19] VITALS: BP 130/86; PULSE 97; RESP 16; TEMP 36.9; O2SAT 97
[2019-07-03] MEDS: LEVOTHYROXINE 100 MCG TABLET 200 MCG PO (05:45)
[2019-07-03 06:50] LABS: Hematocrit 32.2 % (41-53); Hemoglobin 10.7 g/dL (13.5-17.5)
--- NOTE | 2019-07-03 07:30 | PM.PNPO.1 ---
Subjective Subjective Date Patient Seen: 07/03/19 Time Patient Seen: 07:00 Interval history: POD #1 s/p RTHA by Dr. Johnson. Overnight patient had one episode of emesis. Has resolved, denies nausea/vomiting. States he has no pain in hip. Voiding without difficulty or assistance. Mobilizing well with physical therapy. Denies fever, chills, chest pain, shortness of breath, pain in calves. Exam Vital Signs (past 8 hours): - 07/03/19 00:00 07/03/19 04:19 Temperature 98.2 F 98.4 F Pulse Rate 98 H 97 H Respiratory Rate 16 16 Blood Pressure 125/82 130/86 Pulse Oximetry 96 97 Oxygen Delivery Method Room Air Oxygen Flow Rate 0 Narrative Exam Narrative: 78 yo M is laying comfortably in bed, in no apparent distress. A&Ox3. Bulky dressing CDI, SCDs in place. Able to actively dorsiflex/plantar flex BL. Sensory function grossly intact to light touch in LE BL. Calves warm, soft, compressible, non tender to palpation BL. Dorsalis pedis 2+ BL. Objective Labs Result Diagrams: 07/03/19 06:21 Labs: Laboratory Results - last 24 hr 07/03/19 06:21 Hgb 10.7 L Hct 32.2 L Assessment & Plan Post-op Postoperative Procedures: Procedures Operation Date: 07/02/19 07:45 Actual Procedures Side Surgeon p Total Hip Arthroplasty Right Jaxon Johnson MD Postoperative day: 1 Postoperative status: doing well Postoperative plan: discharge Postoperative plan narrative: Discharge home today pending physical therapy clearance Has prescription for oxycodone 5mg at home Eliquis for DVT prophylaxis Follow up in clinic in 2 weeks and begin outpatient PT in 1 week Time Spent With Patient Time with patient: less than 15 minutes Quality VTE Deep Vein Thrombosis/Pulmonary Embolism Present on Admission: No
[2019-07-03 08:06] VITALS: BP 127/82; PULSE 119; RESP 20; O2SAT 92
[2019-07-03] MEDS: APIXABAN 5 MG TABLET PO (08:15)
[2019-07-03] MEDS: DOCUSATE 100 MG CAPSULE PO (08:15)
[2019-07-03] MEDS: METOPROLOL ER 50 MG TABLET 75 MG PO (08:15)
[2019-07-03] MEDS: POTASSIUM CHLORIDE 20 MEQ TAB PO (08:15)
[2019-07-03] MEDS: FUROSEMIDE 40 MG TABLET PO (08:15)
[2019-07-03] MEDS: SODIUM CHLORIDE 0.9% FLUSH 10 ML IV (08:16)
--- NOTE | 2019-07-03 08:48 | CM.DPC ---
DCP: continued: case received, d/c to home order is noted but d/c summary is currently in draft. PT did see pt yesterday afternoon: note is reviewed. Plan is for home with spouse assit and OUTPT PT when pt is stable for same. Caregiver training and stairs are part of the PT plan for today. Will discuss in rounds and follow prn for any d/c needs. Pt is post op day one: Admission status: SDC: confirmed by MATTHEW Rios.
[2019-07-03 08:55] VITALS: PULSE 110; O2SAT 93
--- NOTE | 2019-07-03 09:06 | PC.NURSE ---
Addendum entered by Corinna Chavez R.N. 07/03/19 15:54: Correction for 07/02/19 documentation for pain assessment was for right hip pain assessment, not left hip. Pt did not have any pain to left hip. Addendum entered by Corinna Chavez R.N. 07/03/19 15:33: Right hip dressing changed. Old dressing removed, incision well approximated with erika intact, no S/S of infection seen. Area cleansed with NS, pat dry and 10 inch Aquacel AG dressing applied per order. Pt tolerate well. Discharge summary packet instructions reviewed with pt and his Sharon at bedside. No prescriptions at this time, pt taking Tylenol which he has already at home and per pt and HESHAM Conteh, pt already has Oxycodone at home. Pt has all belongings. No further voiced concerns. Pt left unit via wheelchair at 1507 in no distress with Float RN escort. Pt's Sharon present to drive pt home. Addendum entered by Corinna Chavez R.N. 07/03/19 11:32: At 1045, pt now sitting in chair at bedside after working with PT, requested scheduled Tylenol at this time. Rates 1.5/10 pain to right hip incision area. No further voiced concerns. Plan to have 2nd PT session at 1330 with caregiver training per Ilda, PT. Addendum entered by Corinna Chavez R.N. 07/03/19 10:15: Pt c/o all over body itching, PRN PO Zofran given, as was given yesterday for nose and facial itching and was effective for pt. No new skin issue noted, pt currently working with PT. Original Note: Day Shift- Spoke with HESHAM Conteh at 0902, made aware pt's temp done temporal by HEDIS COORDINATOR was 100.9F, forehead slightly sweaty, therefore HEDIS COORDINATOR performed oral temp check, oral temp was 99.9F orally, no new orders at this time.
--- NOTE | 2019-07-03 09:34 | PT.IPTN ---
Current Diagnoses Unilateral primary osteoarthritis, right hip (07/02/19) Surgery Performed Operation Date: 07/02/19 07:45 Actual Procedures p Total Hip Arthroplasty(Right) - Jaxon Johnson MD Physical Therapy Treatment Note M2 PT-IP Current Condition Start: 07/02/19 15:25 Freq: NEEDED Status: Active Protocol: Document 07/02/19 14:25 AB (Rec: 07/02/19 15:42 AB [id number]) Physical Therapy Current Condition Current Condition Evaluation Date 07/02/19 Treatment Diagnosis s/p R ADAM posterior approach; difficulty in walking Onset Date 07/02/2019 Precautions Posterior Hip Precautions No Hip Flexion > 90 degrees,No Hip Internal Rotation,No Hip Adduction Weight Bearing Status Weight Bearing Status Weight Bear as Tolerated Allowed Weight Bearing Amount (enter % WBAT RLE or #) (%) M3 PT-IP Subjective Start: 07/02/19 15:25 Freq: NEEDED Status: Active Protocol: Document 07/03/19 09:34 AB (Rec: 07/03/19 11:01 AB [id number]) Subjective Physical Therapy Visit Type Type Treatment Note Visit Start Time 09:34 Visit Stop Time 10:35 Total Visit Minutes 59 Number of COLLEGE ADVISOR Visits 0 Physical Therapy Visit Comments Patient Comments pt agreeable to do PT. spouse present for cargiver training Therapy Pain Assessment Pain When Pain Assessed At Rest Pain Present Pain Present Pain Reported Location Left Hip Intensity 1 Scale Used Numeric (1 - 10) Pain Management Techniques Modification of Treatment M4 PT-IP Mobility and Gait Start: 07/02/19 15:25 Freq: NEEDED Status: Active Protocol: Document 07/03/19 09:34 AB (Rec: 07/03/19 11:01 AB [id number]) PT-Bed Mobility Assessment Supine to Sit Supine to Sit Standby Assistance PT-Transfer Assessment Sit to and From Stand Sit to and from Stand Minimal Assistance,1 Person Assistance,Use of Upper Extremities Equipment Transfer Assistive Device Gait Belt,Front Wheeled Walker Orthotic/Prosthetic Devices or Brace: No Transfers Transfer Destination Bed,Chair Transfer Technique Stand Step Pivot Transfer Ability Level of Assist Minimal Assistance,1 Person Assistance,Use of Upper Extremities Comments Mobility Comments caregiver training conducted. educated spouse on how to use safety belt and how to assist pt. pt completed supine to sit SBA x 2 attempts with increase time needed to complete task. requires cues to complete. completed sit to stand min A and cues and pt educated/iinstructed on techniques for sit to stand and maintaining hip precautions. completed sit <> stand again x 2 from EOB requiring min A and cues. pt transferred to the chair using FWW min A. completed sit <> stand x 5 reps min A and cues. pt continues to require cues for techniques. spouse also requires cues on how to instruct and assist pt. pt ambulated to the toilet using FWW min to mod A and cues. was able to maintain standing min A using FWW for support while completed toileting. ambulated towards the sink using FWW min A and cues and was able to maintain standing using FWW CGA. pt ambulated to the EOB and rested. pt ambulated more in room using FWW ~ 20 ft with spouse assisting. educated on how to do platform step. completed up/down platform step min to mod A and cues with PT initially assisting and completed again x 2 with spouse assisting. pt used FWW. requires cues to complete. pt ambulated back to the room using FWW min A and cues and agreed to sit up on chair. call light and table placed within reach. left pt with spouse. Gait Assessment Gait Gait Assistance Required: Minimum Assistance,Moderate Assistance,1 Person Assist Distance (Feet) 20 Able to Maintain Weight Bearing Status Yes During Gait Assistive Devices Assistive Device Gait Belt,Front Wheeled Walker Orthotic/Prosthetic Devices or Brace: No Gait Deviations General Gait Pattern Antalgic,Decreased Stride Length,Decreased Feet Clearance,Flexed Trunk,Step-to Gait Factors Limiting Gait Function Factors Limiting Gait Function Decreased Activity Tolerance, Decreased Sensation,Decreased Strength,Difficulty Following Directions,Incoordination, Limited Range of Motion,Pain, Poor Balance,Poor Safety Awareness,Respiratory Distress Comments Gait Comments pls refer to mobility section for details Stair Climbing Assessment Evaluation Level of Assist On Stairs Minimal Assistance,Moderate Assistance,1 Person Assistance Devices Stair Climbing Assistive Devices Front Wheel Walker Technique/Endurance Stair Climbing Direction Ascend and Descend Stair Climbing Technique Step to Step Number of Steps Climbed 1 Stair Climbing Set # Repetitions (reps) 3 Comments Stair Climbing Comments pls refer to mobility section for details M5 PT-IP Objective Assessments Start: 07/02/19 15:25 Freq: NEEDED Status: Active Protocol: Document 07/02/19 14:25 AB (Rec: 07/02/19 15:42 AB [id number]) Orientation Orientation/Cognition Level of Alertness Alert Orientation Name,Place,Situation Safety Awareness Decreased Safety Awareness Memory Description Short Term Impaired Gross Range of Motion Lower Extremity ROM Assessment Within Functional Limits Strength Lower Extremity Strength Assessment Right Impaired Hip 3+/5 Knee 3+/5 Coordination Assessment Gross Coordination Gross Coordination WNL Sensation Assessment Sensation Gross Sensation Right LE Impaired,Left LE Impaired Light Touch Impaired Proprioception (Position) Impaired Sensation Description Numbness Comments Sensation Comments BLE decrease sensation RLE>LLE Muscle Tone Muscle Tone WNL Yes M6 PT-IP Treatment Start: 07/02/19 15:25 Freq: NEEDED Status: Active Protocol: Document 07/03/19 09:34 AB (Rec: 07/03/19 11:01 AB [id number]) Physical Therapy Treatment Education Education Provided Precautions,Weight Bearing Status,Safety M7 PT-IP Assessment and Plan Start: 07/02/19 15:25 Freq: NEEDED Status: Active Protocol: Document 07/03/19 09:34 AB (Rec: 07/03/19 11:01 AB [id number]) PT Summary Assessment and Plan Potential Rehabilitation Potential Good Summary Impairments Pain,ROM,Strength,Balance, Coordination,Sensation,Tone, Cognition,Bed Mobility, Transfers,Gait,Activity Tolerance Progress Towards Goals Slow Progress due to Activity Tolerance Assessment Summary caregiver training conducted and further training is needed . set up another caregiver training later today at ~ 130 pm. will continue to assess mobility progress for safe d/c plan. Goals Bed Mobility Goal Standby Assistance Transfer Goal Standby Assistance,Front Wheeled Walker Gait Goal Standby Assistance,Front Wheel Walker Gait Distance 200 Other Goals up/down 2 steps R rail ascending SBA Days to Meet Goals 5 Frequency of Treatment Frequency Of Treatment Twice a Day Treatment Plan Physical Therapy Treatment Plan Bed Mobility Training,Transfer Training,Gait Training, Therapeutic Exercise,Balance Retraining,Post Op Education, Discharge Planning,Hot or Cold Pack,Neuromuscular Re-ed, Coordination Retraining,Manual Therapy Other Recommendations and Next Treatment ambulation, stair climbing, Focus caregiver training Recommendations To Nursing Amount of Assist Needed 1 Person Assist Discharge Recommendations PT Discharge Recommendations Home with Assistance, Outpatient PT Transportation Needs at Discharge Private Vehicle
[2019-07-03] MEDS: ONDANSETRON 4 MG ODT PO (10:14)
[2019-07-03] MEDS: ACETAMINOPHEN 325 MG TABLET 650 MG PO ×2 (10:40→15:01)
--- NOTE | 2019-07-03 13:33 | PT.IPTN ---
Current Diagnoses Unilateral primary osteoarthritis, right hip (07/02/19) Surgery Performed Operation Date: 07/02/19 07:45 Actual Procedures p Total Hip Arthroplasty(Right) - Jaxon Johnson MD Physical Therapy Treatment Note M2 PT-IP Current Condition Start: 07/02/19 15:25 Freq: NEEDED Status: Active Protocol: Document 07/02/19 14:25 AB (Rec: 07/02/19 15:42 AB [id number]) Physical Therapy Current Condition Current Condition Evaluation Date 07/02/19 Treatment Diagnosis s/p R ADAM posterior approach; difficulty in walking Onset Date 07/02/2019 Precautions Posterior Hip Precautions No Hip Flexion > 90 degrees,No Hip Internal Rotation,No Hip Adduction Weight Bearing Status Weight Bearing Status Weight Bear as Tolerated Allowed Weight Bearing Amount (enter % WBAT RLE or #) (%) M3 PT-IP Subjective Start: 07/02/19 15:25 Freq: NEEDED Status: Active Protocol: Document 07/03/19 13:33 AB (Rec: 07/03/19 14:09 AB [id number]) Subjective Physical Therapy Visit Type Type Treatment Note Visit Start Time 13:33 Visit Stop Time 13:58 Total Visit Minutes 25 Number of SHOE TREER Visits 0 M4 PT-IP Mobility and Gait Start: 07/02/19 15:25 Freq: NEEDED Status: Active Protocol: Document 07/03/19 13:33 AB (Rec: 07/03/19 14:09 AB [id number]) PT-Bed Mobility Assessment Supine to Sit Supine to Sit Standby Assistance Sit to Supine Sit to Supine Standby Assistance PT-Transfer Assessment Sit to and From Stand Sit to and from Stand Contact Guard Assistance,1 Person Assistance,Use of Upper Extremities Equipment Transfer Assistive Device Gait Belt,Front Wheeled Walker Orthotic/Prosthetic Devices or Brace: No Transfers Transfer Destination Bed,Chair Transfer Technique ambulated using FWW Transfer Ability Level of Assist Contact Guard Assistance Comments Mobility Comments pt up with spouse ambulating to the toilet. pt was able to complete without AD. ambulated to the sink using FWW CGA and was able to maintain standing SBA while completing handwashing. pt ambulatd to the chair using FWW CGA. pt with antalgic gait and tends to hop/skip and not put weight on RLE. educated pt on safety and importance of weight bearing on RLE. caregiver training conducted and spouse donned safety belt on pt. pt ambulated towards the stairs, pt completed up/ down platform step using FWW CGA to min A. completed x 2 reps. pt ambulacted back to his room using FWW CGA. completed supine <>sit SBA and cues. ambulated to the chair using FWW CGA and cues. completed sit <>stand x 5 reps and cues for techniques. left pt on chair. call light and table placed wtihin reach. pt and spouse without any other concerns. informed nurse regarding pt's mobility. Gait Assessment Gait Gait Assistance Required: Contact Guard Assist,1 Person Assist Distance (Feet) 30 Able to Maintain Weight Bearing Status Yes During Gait Assistive Devices Assistive Device Gait Belt,Front Wheeled Walker Orthotic/Prosthetic Devices or Brace: No Gait Deviations General Gait Pattern Antalgic,Decreased Stride Length,Decreased Feet Clearance,Step-to Gait Factors Limiting Gait Function Factors Limiting Gait Function Decreased Activity Tolerance, Decreased Strength,Pain,Poor Safety Awareness,Respiratory Distress Stair Climbing Assessment Evaluation Level of Assist On Stairs Contact Guard Assistance, Minimal Assistance,1 Person Assistance Devices Stair Climbing Assistive Devices Front Wheel Walker Technique/Endurance Stair Climbing Direction Ascend and Descend Stair Climbing Technique Step to Step Number of Steps Climbed 1 Stair Climbing Set # Repetitions (reps) 2 M5 PT-IP Objective Assessments Start: 07/02/19 15:25 Freq: NEEDED Status: Active Protocol: Document 07/02/19 14:25 AB (Rec: 07/02/19 15:42 AB [id number]) Orientation Orientation/Cognition Level of Alertness Alert Orientation Name,Place,Situation Safety Awareness Decreased Safety Awareness Memory Description Short Term Impaired Gross Range of Motion Lower Extremity ROM Assessment Within Functional Limits Strength Lower Extremity Strength Assessment Right Impaired Hip 3+/5 Knee 3+/5 Coordination Assessment Gross Coordination Gross Coordination WNL Sensation Assessment Sensation Gross Sensation Right LE Impaired,Left LE Impaired Light Touch Impaired Proprioception (Position) Impaired Sensation Description Numbness Comments Sensation Comments BLE decrease sensation RLE>LLE Muscle Tone Muscle Tone WNL Yes M6 PT-IP Treatment Start: 07/02/19 15:25 Freq: NEEDED Status: Active Protocol: Document 07/03/19 13:33 AB (Rec: 07/03/19 14:09 AB [id number]) Physical Therapy Treatment Education Education Provided Precautions,Weight Bearing Status,Safety M7 PT-IP Assessment and Plan Start: 07/02/19 15:25 Freq: NEEDED Status: Active Protocol: Document 07/03/19 13:33 AB (Rec: 07/03/19 14:09 AB [id number]) PT Summary Assessment and Plan Potential Rehabilitation Potential Good Summary Impairments Pain,ROM,Strength,Balance, Sensation,Cognition,Bed Mobility,Transfers,Gait, Activity Tolerance Progress Towards Goals Progressing Toward Goals Assessment Summary caregiver training conducted and spouse was able to assist pt. pt plans to go home today . pt stated that he is set up for outpt PT. pt may go home when medically stable. Goals Bed Mobility Goal Standby Assistance Transfer Goal Standby Assistance,Front Wheeled Walker Gait Goal Standby Assistance,Front Wheel Walker Gait Distance 200 Other Goals up/down platform step using FWW CGA Days to Meet Goals 5 Frequency of Treatment Frequency Of Treatment Twice a Day Treatment Plan Physical Therapy Treatment Plan Bed Mobility Training,Transfer Training,Gait Training, Therapeutic Exercise,Balance Retraining,Post Op Education, Discharge Planning,Hot or Cold Pack,Neuromuscular Re-ed, Coordination Retraining,Manual Therapy Other Recommendations and Next Treatment ambulation, stair climbing, Focus caregiver training Recommendations To Nursing Amount of Assist Needed 1 Person Assist Discharge Recommendations PT Discharge Recommendations Home with Assistance, Outpatient PT Transportation Needs at Discharge Private Vehicle
[2019-07-03 14:00] VITALS: PULSE 60; O2SAT 92
== END 2019-07-03 15:07 | disposition home or self-care (01) ==
LOC: AC 13:57 → OR 07-04 09:33 → AC 07-04 09:35 → OR 07-04 09:36
PROVIDERS: Admitting Provider Orthopaedic Surgery; PCP Family Medicine; Referring Provider Orthopaedic Surgery; Visit Provider Orthopaedic Surgery
PROC: 0SR90JZ Replacement of Right Hip Joint with Synthetic Substitute, Open Approach (ICD-10-PCS; CPT 27130; principal; 2019-07-02 07:45)
DX: M16.11 Unilateral primary osteoarthritis, right hip (principal); I48.91 Unspecified atrial fibrillation; Z79.01 Long term (current) use of anticoagulants; I10 Essential (primary) hypertension; E03.9 Hypothyroidism, unspecified; G62.9 Polyneuropathy, unspecified
CPT/HCPCS: 27130; 36415; 72170; 85014; 85018; 94760; 94762; 97162; 97530; C1776; G0378; J0690; J1885; J2250; J2270; J2274; J2405; J2704

== ENCOUNTER → 2020-05-28 09:24 | Outpatient (CLI) | payer MEDICARE, SELFPAY ==
[2019-07-02 10:56] VITALS: BMI 29.7
[2020-05-28] MEDS: COVID-19 VACC #1, MRNA(MOD) 100 MCG/0.5 ML VIAL IM (09:29)
== END ==
PROVIDERS: PCP Family Medicine; Visit Provider Internal Medicine
DX: Z23 Encounter for immunization (principal)
CPT/HCPCS: 0011A; 91301

== ENCOUNTER → 2020-06-24 11:00 | Outpatient (CLI) | payer MEDICARE, SELFPAY ==
[2019-07-02 10:56] VITALS: BMI 29.7
[2020-06-24] MEDS: COVID-19 VACC #2, MRNA(MOD) 100 MCG/0.5 ML VIAL IM (11:07)
== END ==
PROVIDERS: PCP Family Medicine; Visit Provider Internal Medicine
DX: Z23 Encounter for immunization (principal)
CPT/HCPCS: 0012A; 91301

== ENCOUNTER → 2020-08-04 10:58 | Outpatient (CLI) | payer MEDICARE, SELFPAY ==
[2019-07-02 10:56] VITALS: BMI 29.7
[2020-08-04 13:30] LABS: COVID19 -Nasal RAPID Negative (Negative)
== END ==
PROVIDERS: PCP Family Medicine; Visit Provider Student in an Organized Health Care Education/Training Program
DX: Z20.822 Contact with and (suspected) exposure to COVID-19 (principal)
CPT/HCPCS: 87635; C9803

== ENCOUNTER 2020-08-06 12:19 | Day surgery (SDC) | payer MEDICARE, SELFPAY ==
[2019-07-02 10:56] VITALS: BMI 29.7
[2020-08-06] VITALS (8 sets, daily range): BP systolic 119–134; BP diastolic 64–79; PULSE 85–90; RESP 14–95; TEMP 36.8–37.2; O2SAT 18–98; BMI 287.2
--- NOTE | 2020-08-06 | PATH_ITS ---
[facility] Accession Number: [id number] . 01 Material submitted: . colon - CECAL POLYP 4MM . 01 Clinical history: . SDC . 02 Diagnosis: Cecum, Polyp 4 mm, Biopsy: Tubular adenoma. [facility] 08/10/2020 1625 Local . 02 Electronically signed: . Queta Schmid MD, Pathologist NPI- [id number] . 01 Gross description: . CECAL POLYP 4MM: Received in formalin is 1 fragment(s) of saab, soft tissue measuring 0.3 x 0.3 x 0.2 cm submitted entirely in 1 cassette(s) /QBJ 08/07/2020 0644 Local . 02 Pathologist provided ICD-10: D12.0 . 02 CPT . 287756 Performed at: 01 [facility] [address] [id number] MD Jimi Ortega MD Phone: [phone] Performed at: 02 [facility] [address] [place], [place] [id number] MD Queta Schmid MD Phone: [phone]
--- NOTE | 2020-08-06 12:12 | P.HP_ITS ---
History of Present Illness History of Present Illness Date Patient Seen: 08/06/20 Chief complaint: SDC Narrative: 79 year old male comes in today for consideration of a screening colonoscopy. Five lifetime colonoscopies: Many years ago, unknown history. 06/24/2008 Dr. Whitney, [facility], hepatic flexure and cecal polyp tubular adenomas. 07/31/2014, Dr. Ferrer, [facility], referred to Dr. Lopes at [facility] secondary to unresected sessile colon polyp. 10/13/2014. Dr. Lopes, [facility], 2 mm cecal hyperplastic polyp, 10 mm transverse sessile serrated adenoma 03/29/2016, Dr. Lopes, [facility], records not available at time of dictation, normal per patient with 3 year recall. There have been no lower GI symptoms suggesting disease such as change in bowel habits, bleeding, abdominal pain or anemia. There's been no family history of colon cancer or colon polyps. Overall health issues have been stable, including no major cardiac events for at least 6 weeks. He is anticoagulated on Eliquis for atrial fibrillation. Last dose was 2 days ago. PCP: Dr. Chung Past medical history Lipoma Vitamin-D deficiency Vitamin B12 deficiency Nondiabetic neuropathy Fatty liver disease Elevated alkaline phosphatase Hypertension Atrial fibrillation, converted Hypothyroidism Hyperlipidemia Aortic regurgitation, 2/6 murmur Erectile dysfunction Aortic regurgitation with cardiac murmur Lumbar disc disease Actinic keratosis Past surgical history: Colonoscopies x5 Left hip replacement, 2019 Family history: Father: Heart disease, hypertension, hyperlipidemia Mother: Heart disease, hypertension, hyperlipidemia Sister: Lung cancer, lifetime nonsmoker Social history: to [employer], retired. Patient History Medical History (Updated 01/27/19 @ 12:12 by Niecy Rosales RN) Afib (~2014) Anemia Aortic valve regurgitation Arthritis Atrial enlargement, bilateral Edema Foot fracture, right HLD (hyperlipidemia) HTN (hypertension) Hypothyroid Left ventricular systolic dysfunction Neuropathy Osteoarthritis Surgical History (Updated 01/27/19 @ 09:20 by Niecy Rosales RN) Hx of bilateral cataract extraction (~2014) Hx of tonsillectomy Family & Social History Social History: household members spouse Tobacco & Substance use: Tobacco type cigarettes Smoking Status Former smoker alcohol intake current alcohol intake frequency 0-2 drinks per day Substance Use Type does not use Meds Home Medications and Allergies Home Medications Medication Instructions Recorded Confirmed Type Eliquis 5 mg PO BID 01/27/19 08/06/20 History atorvastatin 40 mg PO BEDTIME 01/27/19 08/06/20 History furosemide 40 mg PO QAM 01/27/19 08/06/20 History levothyroxine 200 mcg PO DAILY 01/27/19 08/06/20 History losartan 100 mg PO QPM 01/27/19 08/06/20 History metoprolol succinate 75 mg PO BID 01/27/19 08/06/20 History potassium chloride 20 meq PO DAILY 01/27/19 08/06/20 History acetaminophen [Tylenol Extra 500 mg PO Q4H PRN #60 tab 07/03/19 08/06/20 Rx Strength] Allergies Allergy/AdvReac Type Severity Reaction Status Date / Time No Known Drug Allergies Allergy Verified 08/06/20 12:41 Review of Systems Review of Systems ROS: Yes All systems reviewed with the patient and are negative except as otherwise documented Exam Narrative Exam Narrative: GENERAL: Alert and oriented, appearing stated age and in no acute distress. HEENT: Head normocephalic/atraumatic. Pupils equal, round, and reactive to light and accomodation. Extraocular muscles intact. Tympanic membranes clear. Nasal mucosa moist, septum midline. Oral mucosa moist, no lesions. Neck soft and supple, no lymphadenopathy. LUNGS: Clear to ausculation bilaterally, no wheezes, rhonchi or rales. CV: Normal S1 and S2 with regular rate and rhythm, 2/5 systolic murmurs, no rubs or gallops. ABDOMEN: Soft, non-tender, non-distended, no organomegaly. Positive bowel sounds. EXTREMITIES: No clubbing, cyanosis, or edema. NEURO: Cranial nerves II through XII grossly intact, no focal deficits. PSYCH: Alert and oriented x 3. SKIN: No concerning lesions. Assessment & Plan Assessment & Plan narrative: 1. History of colon polyps 2. Screening for colon cancer 3. Atrial fibrillation, on Eliquis Plan for colonoscopy. The nature and character of the procedure as well as anticipated results were discussed. The possibility of not completing the procedure was also discussed. Possible complications including aspiration pneumonia, bleeding, perforation and reaction to medications either for sedation or preparation and missed lesions were discussed. Questions were answered and proceeding to the colonoscopy was elected. Informed consent signed. I sincerely appreciate the referral allowing me to participate in this patient's care. Please contact me with any questions or concerns.
--- NOTE | 2020-08-06 12:29 | PM.OP.ENDO ---
Operative Date/Time/Diagnoses Date of procedure: 08/06/20 Procedure Notes SCOAP/Timeout: 1:38 p.m. Procedure in detail: ENDOSCOPIST: Leigh Jones MD Sedation RN: Chris Haro RN Sedation start time: 1:39 p.m. Sedation end time: 2:02 p.m. PROCEDURE: Colonoscopy with cold biopsy INDICATIONS: 1. History of colon polyps 2. Screening for colon cancer MEDICATION: Levsin 0.125 mg sublingual, incremental doses of Versed and fentanyl until appropriate level sedation achieved. ASA CLASS: 2 CECAL WITHDRAWAL TIME: 14 minutes COMPLICATIONS: None. EXTENT OF PROCEDURE: Cecum. QUALITY OF PREP: Good with portions of liquid stool. PROCEDURE: Prior to insertion of the colonoscope, a digital rectal examination was accomplished with circumferential palpation of the distal rectal mucosa without significant findings being noted. The high-definition colonoscope was passed into the rectum in the usual fashion and advanced over to the cecum without difficulty. The ileocecal valve, appendiceal stoma, and medial wall all could be inspected and a 4 mm polyp was seen and removed with cold biopsy forceps, excellent hemostasis noted. ASCENDING COLON: As the colonoscope was withdrawn, care was taken to expose and inspect the haustral folds and no abnormalities were seen. HEPATIC FLEXURE: Normal, no polyps, diverticula or other abnormalities. TRANSVERSE COLON: Normal, no polyps, diverticula or other abnormalities. DESCENDING COLON: Normal, no polyps, diverticula or other abnormalities. SIGMOID COLON: Normal, no polyps, diverticula or other abnormalities. RECTUM: Normal. J maneuver was produced. There was no significant perianal disease. The J maneuver was broken. The remainder of the rectum was inspected and there was no external hemorrhoid disease. The scope was withdrawn. IMPRESSION: 1. Cecal polyp x1, 4 mm, removed with cold biopsy forceps PLAN: 1. Follow-up in clinic status post pathology results. The possibility of a missed lesion including a malignancy has been discussed with the patient previously. Potential alarm symptoms have been discussed and should be reported immediately.
[2020-08-06] MEDS: LACTATED RINGERS 1,000 ML 200 ML IV (12:45)
[2020-08-06] MEDS: fentaNYL 250 MCG/5 ML INJ IV (13:48)
[2020-08-06] MEDS: MIDAZOLAM 5 MG/5 ML VIAL IV (13:48)
== END 2020-08-06 15:01 | disposition home or self-care (01) ==
PROVIDERS: PCP Family Medicine; Referring Provider Student in an Organized Health Care Education/Training Program; Visit Provider Student in an Organized Health Care Education/Training Program
PROC: 0DJD8ZZ Inspection of Lower Intestinal Tract, Via Natural or Artificial Opening Endoscopic (ICD-10-PCS; CPT 45378; principal; 2020-08-06 13:45)
DX: Z12.11 Encounter for screening for malignant neoplasm of colon (principal); Z86.010 Personal history of colon polyps; I10 Essential (primary) hypertension; E03.9 Hypothyroidism, unspecified; E78.5 Hyperlipidemia, unspecified; I35.1 Nonrheumatic aortic (valve) insufficiency; D12.0 Benign neoplasm of cecum
CPT/HCPCS: 45380; J2250; J3010

== ENCOUNTER → 2021-06-28 11:26 | Outpatient (CLI) | payer MEDICARE, SELFPAY ==
[2019-07-02 10:56] VITALS: BMI 29.7
--- NOTE | 2021-06-28 | DI.RAD.S_ITS ---
PROCEDURE: XR CHEST 2V INDICATIONS: Chronic cough TECHNIQUE: 2 views of the chest were acquired. COMPARISON: [facility], , CHEST 2 VIEW, 01/17/2013, 13:41. FINDINGS: Surgical changes and devices: None. Lungs and pleura: Mild pulmonary vascular congestion is seen. Increased bronchovascular markings in bilateral hilar region are noted. No definite focal infiltrate. No pleural effusions or pneumothorax. Mediastinum: Mediastinal contours are normal. Heart size is enlarged. Bones and chest wall: No suspicious bony abnormalities. Soft tissues appear unremarkable. IMPRESSION: Suggestion of reactive airway disease such as bronchitis or asthma. No definite focal infiltrate. No pleural effusion or pneumothorax. Dictated by: Hayden Edwards M.D. on 06/28/2021 at 14:21 Approved by: Hayden Edwards M.D. on 06/28/2021 at 14:21
== END ==
PROVIDERS: PCP Family Medicine; Referring Provider Family Medicine; Visit Provider Family Medicine
DX: R05.3 Chronic cough (principal)
CPT/HCPCS: 71046

== ENCOUNTER → 2021-09-26 15:49 | Outpatient (CLI) | payer MEDICARE, SELFPAY ==
[2019-07-02 10:56] VITALS: BMI 29.7
--- NOTE | 2021-09-26 | DI.RAD.S_ITS ---
PROCEDURE: XR FOOT RT MIN 3V INDICATIONS: Localized swelling, mass and lump, right lower limb TECHNIQUE: 3 views of the foot were acquired. COMPARISON: None. FINDINGS: Bones: Hallux valgus deformity. Large medial bunion. 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 No fractures or dislocations. No suspicious bony lesions. No osseous erosive changes no periosteal reaction. Soft tissues: No tibiotalar joint effusion. Achilles tendon appears normal. Soft tissue swelling noted in the dorsum of the foot. No soft tissue gas. IMPRESSION: Medial bunion. Hallux valgus deformity. Osteoarthritis. Nonspecific soft tissue swelling without soft tissue gas. No farnaz evidence of osteomyelitis. Plain film radiographs can be insensitive to osteomyelitis during the initial 15 days of the disease process. If there is clinical concern for osteomyelitis, then three-phase nuclear medicine bone scan or MRI should be considered for further evaluation. Dictated by: Feli Vásquez MD, PhD on 09/26/2021 at 16:32 Approved by: Feli Vásquez MD, PhD on 09/26/2021 at 16:33
== END ==
PROVIDERS: PCP Family Medicine; Referring Provider Family Medicine; Visit Provider Family Medicine
DX: M20.11 Hallux valgus (acquired), right foot (principal); M21.611 Bunion of right foot; M19.071 Primary osteoarthritis, right ankle and foot; R79.89 Other specified abnormal findings of blood chemistry; R22.41 Localized swelling, mass and lump, right lower limb
CPT/HCPCS: 73630

== ENCOUNTER → 2022-05-22 11:02 | Outpatient (ROUT) | payer MEDICARE, SELFPAY ==
[2019-07-02 10:56] VITALS: BMI 29.7
[2022-05-22 11:54] LABS: Influenza A - CEPHEID Flu A POSITIVE (NEGATIVE); Influenza B - CEPHEID Flu B NEGATIVE (NEGATIVE); Respiratory Syncytial Virus Negative (Negative)
[2022-05-22 11:55] LABS: COVID-19 CEPHEID 4-PLEX PCR Negative (Negative)
== END ==
PROVIDERS: PCP Family Medicine; Visit Provider Family Medicine
DX: R05.9 Cough, unspecified (principal); R50.9 Fever, unspecified
CPT/HCPCS: 0241U

== ENCOUNTER → 2022-06-08 13:36 | Outpatient (CLI) | payer MEDICARE, SELFPAY ==
[2019-07-02 10:56] VITALS: BMI 29.7
--- NOTE | 2022-06-08 | DI.RAD.S_ITS ---
PROCEDURE: XR CHEST 2V INDICATIONS: cough, frontal sinusitis TECHNIQUE: 2 views of the chest were acquired. COMPARISON: [facility], CR, XR CHEST 2V, 06/28/2021, 11:20. FINDINGS: Surgical changes and devices: None. Lungs and pleura: Increased bronchovascular markings in bilateral hilar region are seen with bronchial wall thickening. No focal infiltrate. No pleural effusions or pneumothorax. Mediastinum: Mediastinal contours are normal. Heart size is normal. Bones and chest wall: No suspicious bony abnormalities. Soft tissues appear unremarkable. IMPRESSION: Suggestion of reactive airway disease such as bronchitis or viral illness. No definite focal infiltrate. No pleural effusion or pneumothorax. Dictated by: Hayden Edwards M.D. on 06/08/2022 at 15:22 Approved by: Hayden Edwards M.D. on 06/08/2022 at 15:26
== END ==
PROVIDERS: PCP Family Medicine; Referring Provider Registered Nurse; Visit Provider Registered Nurse
DX: R05.1 Acute cough (principal); J01.10 Acute frontal sinusitis, unspecified
CPT/HCPCS: 71046

== ENCOUNTER → 2022-07-07 14:17 | Outpatient (CLI) | payer MEDICARE, SELFPAY ==
[2019-07-02 10:56] VITALS: BMI 29.7
--- NOTE | 2022-07-07 14:19 | DI.CT.S_ITS ---
PROCEDURE: CT KIDNEY URETER BLADDER (KUB) INDICATIONS: Gross hematuria TECHNIQUE: Axial sections were acquired from the lung bases to the pubic symphysis. Coronal and sagittal reformats were performed. For radiation dose reduction, the following was used: automated exposure control, adjustment of mA and/or kV according to patient size. COMPARISON: None. FINDINGS: Image quality: Excellent. Lung bases: Unremarkable. Heart: No significant findings. URINARY: Right Kidney: No stones or hydronephrosis. Right Ureter: No hydroureter. Left Kidney: No stones or hydronephrosis. Left Ureter: No hydroureter. Bladder: Normal wall thickness. No stones. ABDOMEN: Liver: Unremarkable. Gallbladder: Unremarkable. Biliary ducts: Unremarkable. Pancreas: Unremarkable. Spleen: Unremarkable. Adrenal Glands: Unremarkable. Stomach and Bowel: Stomach, small bowel loops, and colon are unremarkable. Peritoneum: No abnormal intraperitoneal fluid. No free air. Ventral Wall: No hernia. Abdominal Nodes: No enlarged retroperitoneal or mesenteric lymph nodes. Vessels: Aorta and inferior vena cava are normal in size. PELVIS: Pelvic Organs: Unremarkable. Pelvic Nodes: Unremarkable. Miscellaneous: No inguinal hernias are seen. The bladder is poorly visualized due to presence of metal artifact from bilateral total hip arthroplasty procedures from the past. Bones: Unremarkable. IMPRESSION: No urinary tract stone or obstruction is found. Please note that the presence of metal artifact from the bilateral total hip arthroplasties produces poor visualization of the bladder area. Depending on the clinical status follow-up by direct visualization with urology consult may be warranted. Additionally, bladder ultrasound would provide an alternative method for partial visualization of the bladder lumen. Cystoscopy is preferred if bladder neoplasm is clinically suspected. Dictated by: Cholo Pablo M.D. on 07/07/2022 at 15:45 Approved by: Cholo Pablo M.D. on 07/07/2022 at 15:48
== END ==
PROVIDERS: PCP Family Medicine; Referring Provider Family Medicine; Visit Provider Family Medicine
DX: R31.0 Gross hematuria (principal); Z96.643 Presence of artificial hip joint, bilateral
CPT/HCPCS: 74176

== ENCOUNTER → 2023-07-30 12:23 | Outpatient (CLI) | payer MEDICARE, SELFPAY ==
[2019-07-02 10:56] VITALS: BMI 29.7
--- NOTE | 2023-07-30 12:25 | DI.RAD.S_ITS ---
PROCEDURE: XR CHEST 2V INDICATIONS: COUGH TECHNIQUE: 2 views of the chest were acquired. COMPARISON: [facility], CR, XR CHEST 2V, 06/08/2022, 13:38. [facility], CR, XR CHEST 2V, 06/28/2021, 11:20. FINDINGS: Surgical changes and devices: None. Lungs and pleura: Bibasilar, perihilar airspace opacities. Mediastinum: Mediastinal contours are normal. Heart size is enlarged. Bones and chest wall: No suspicious bony abnormalities. Soft tissues appear unremarkable. IMPRESSION: Bibasilar, perihilar airspace opacities. Findings may indicate multifocal pneumonia, aspiration, less likely atelectasis. Dictated by: Zach Davis M.D. on 07/30/2023 at 13:42 Approved by: Zach Davis M.D. on 07/30/2023 at 13:42
== END ==
PROVIDERS: PCP Family Medicine; Referring Provider Family Medicine; Visit Provider Family Medicine
DX: R05.1 Acute cough (principal)
CPT/HCPCS: 71046; 87633

== ENCOUNTER → 2023-07-30 12:30 | Outpatient (ROUT) | payer MEDICARE, SELFPAY ==
[2019-07-02 10:56] VITALS: BMI 29.7
[2023-07-30 13:22] LABS: Adenovirus Not Detected (Not Detect); B. parapertussis Not Detected (Not Detecte); Bordetella pertussis Not Detected (Not Detect); Chlamydophila pneumoniae Not Detected (Not Detect); Coronavirus 229E Not Detected (Not Detect); Coronavirus HKU1 Not Detected (Not Detect); Coronavirus NL 63 Not Detected (Not Detect); Coronavirus OC43 Not Detected (Not Detect); Human Metapneumovirus Detected (Not Detect); Human Rhinovirus/Enterovirus Not Detected (Not Detect); Influenza A Not Detected (Not Detect); Influenza B Not Detected (Not Detect); Mycoplasma pneumoniae Not Detected (Not Detect); Parainfluenza Virus 1 Not Detected (Not Detect); Parainfluenza Virus 2 Not Detected (Not Detect); Parainfluenza Virus 3 Not Detected (Not Detect); Parainfluenza Virus 4 Not Detected (Not Detect); Respiratory Syncytial Virus Not Detected (Not Detect); SARS- CoV-2 Not Detected (Not Detecte)
== END ==
PROVIDERS: PCP Family Medicine; Visit Provider Family Medicine
DX: R05.1 Acute cough (principal)
CPT/HCPCS: 87633

== ENCOUNTER → 2023-09-04 10:59 | Outpatient (CLI) | payer MEDICARE, OTHER, SELFPAY ==
[2019-07-02 10:56] VITALS: BMI 29.7
--- NOTE | 2023-09-04 11:03 | DI.RAD.S_ITS ---
PROCEDURE: XR CHEST 2V INDICATIONS: PNEUMONIA TECHNIQUE: 2 views of the chest were acquired. COMPARISON: [facility], CR, XR CHEST 2V, 07/30/2023, 12:36. FINDINGS: Surgical changes and devices: None. Lungs and pleura: Lungs are clear. No pleural effusions or pneumothorax. Mediastinum: Mediastinal contours are normal. Cardiomegaly, as before. Bones and chest wall: No suspicious bony abnormalities. Soft tissues appear unremarkable. IMPRESSION: No evidence pneumonia currently. Dictated by: Mario Murguia M.D. on 09/04/2023 at 13:52 Approved by: Mario Murguia M.D. on 09/04/2023 at 13:53
== END ==
PROVIDERS: PCP Family Medicine; Referring Provider Family Medicine; Visit Provider Family Medicine
DX: J18.9 Pneumonia, unspecified organism (principal)
CPT/HCPCS: 71046